=== PATIENT | female | born 1970 | race Caucasian/White ===

== ENCOUNTER 2020-01-09 07:24 | Outpatient (RCR) | payer OTHER, SELFPAY | END 2020-01-31 23:59 | disposition home or self-care (01) | LOC: SPT 07:24 | PROVIDERS: PCP Family Medicine; Visit Provider Family Medicine | DX: M47.816 Spondylosis without myelopathy or radiculopathy, lumbar region (principal) | CPT/HCPCS: 97110; 97150; 97162 ==

== ENCOUNTER 2020-02-01 06:00 | Outpatient (RCR) | payer OTHER, SELFPAY | END 2020-03-02 23:59 | disposition home or self-care (01) | LOC: SPT 06:00 | PROVIDERS: PCP Family Medicine; Visit Provider Family Medicine | DX: M47.816 Spondylosis without myelopathy or radiculopathy, lumbar region (principal) | CPT/HCPCS: 97110 ==

== ENCOUNTER 2020-02-22 06:00 | Outpatient (RCR) | payer OTHER, SELFPAY | END 2020-03-02 23:59 | disposition home or self-care (01) | LOC: SPT 06:00 | PROVIDERS: PCP Family Medicine; Referring Provider Family Medicine; Visit Provider Family Medicine | DX: N39.3 Stress incontinence (female) (male) (principal); M53.3 Sacrococcygeal disorders, not elsewhere classified | CPT/HCPCS: 97110; 97161; 97530 ==

== ENCOUNTER 2020-03-03 06:00 | Outpatient (RCR) | payer OTHER, SELFPAY | END 2020-04-02 23:59 | disposition home or self-care (01) | LOC: SPT 06:00 | PROVIDERS: PCP Family Medicine; Referring Provider Family Medicine; Visit Provider Family Medicine | DX: M53.3 Sacrococcygeal disorders, not elsewhere classified (principal); N39.3 Stress incontinence (female) (male) | CPT/HCPCS: 97110; 97112 ==

== ENCOUNTER 2020-04-03 06:00 | Outpatient (RCR) | payer OTHER, SELFPAY | END 2020-05-02 23:59 | disposition home or self-care (01) | LOC: SPT 06:00 | PROVIDERS: PCP Family Medicine; Referring Provider Family Medicine; Visit Provider Family Medicine | DX: M53.3 Sacrococcygeal disorders, not elsewhere classified (principal); N39.3 Stress incontinence (female) (male) | CPT/HCPCS: 97110 ==

== ENCOUNTER 2020-04-05 07:46 | Outpatient (CLI) | payer OTHER, SELFPAY ==
[2020-04-05 08:12] LABS: Basophils % 0.6 %; Eosinophils # 0.2 10^3/uL (0.0-0.8); Hematocrit 46.5 % (37.0-47.0); Hemoglobin 14.6 g/dL (11.5-15.3); Lymphocytes # 1.8 10^3/uL (0.8-4.8); Lymphocytes % 27.7 %; Mean Corpuscular HGB Conc 31.4 g/dL (30.0-36.0); Mean Corpuscular Hemoglobin 29.6 pg (28.0-34.0); Mean Corpuscular Volume 94.3 fL (81-99); Mean Platelet Volume 11.5 fL (7.4-10.4); Monocytes # 0.4 10^3/uL (0.2-0.9); Monocytes % 5.5 %; Neutrophils # 4.05 10^3/uL (1.8-7.7); Nucleated Red Blood Cells % 0 %; Platelet Count 210 10^3/cmm (130-400); Red Blood Count 4.93 10^6/uL (4.1-5.3); Red Cell Distribution Width 12.6 % (12.1-15.1); White Blood Count 6.4 10^3/uL (4.0-10.0)
[2020-04-05 08:25] LABS: Creatinine Urine, Random 175 mg/dL (28-217)
[2020-04-05 08:31] LABS: Albumin Level 4.3 g/dL (3.5-5.2); Anion Gap 12.3 (5-19); Blood Urea Nitrogen 8 mg/dL (6-20); Calcium 9.1 mg/dL (8.5-10.5); Carbon Dioxide 27 mmol/L (22-29); Chloride 105 mmol/L (98-107); Glomerular Filtration Rate 66.8 mL/min (90-130); Glucose 99 mg/dL (65-115); Phosphorus 3.8 mg/dL (2.5-4.5); Potassium 4.3 mmol/L (3.5-5.1); Sodium 140 mmol/L (136-145)
[2020-04-05 09:08] LABS: Calcium 9.8 mg/dL (8.5-10.5); Parathyroid Hormone 26.6 pg/mL (15-65)
== END 2020-04-05 07:47 | disposition home or self-care (01) ==
LOC: LAB 07:49
PROVIDERS: PCP Family Medicine; Visit Provider Internal Medicine Nephrology
DX: N18.3 Chronic kidney disease, stage 3 (moderate) (principal)
CPT/HCPCS: 36415; 80069; 82310; 82575; 83970; 85025

== ENCOUNTER 2020-05-03 06:00 | Outpatient (RCR) | payer OTHER, SELFPAY | END 2020-05-16 23:00 | disposition home or self-care (01) | LOC: SPT 06:00 | PROVIDERS: PCP Family Medicine; Referring Provider Family Medicine; Visit Provider Family Medicine | DX: M53.3 Sacrococcygeal disorders, not elsewhere classified (principal); N39.3 Stress incontinence (female) (male) | CPT/HCPCS: 97110 ==

== ENCOUNTER → 2020-09-14 09:46 | Outpatient (BNVA) | payer OTHER, SELFPAY | PROVIDERS: PCP Family Medicine; Visit Provider Nurse Practitioner Family | DX: Z20.822 Contact with and (suspected) exposure to COVID-19 (principal) | CPT/HCPCS: 87635 ==

== ENCOUNTER 2020-12-21 08:53 | Outpatient (CLI) | payer OTHER, SELFPAY ==
[2020-12-21 11:19] LABS: Basophils # 0.1 10^3/uL (0.0-0.1); Basophils % 0.8 %; Eosinophils # 0.2 10^3/uL (0.0-0.8); Eosinophils % 3.5 %; Hematocrit 45.5 % (37.0-47.0); Hemoglobin 14.6 g/dL (11.5-15.3); Lymphocytes # 1.8 10^3/uL (0.8-4.8); Lymphocytes % 26.9 %; Mean Corpuscular HGB Conc 32.1 g/dL (30.0-36.0); Mean Corpuscular Hemoglobin 29.6 pg (28.0-34.0); Mean Corpuscular Volume 92.3 fL (81-99); Mean Platelet Volume 11.4 fL (7.4-10.4); Monocytes # 0.4 10^3/uL (0.2-0.9); Monocytes % 6.4 %; Neutrophils # 4.09 10^3/uL (1.8-7.7); Neutrophils % 61.9 %; Nucleated Red Blood Cells % 0 %; Platelet Count 232 10^3/cmm (130-400); Red Blood Count 4.93 10^6/uL (4.1-5.3); Red Cell Distribution Width 12.6 % (12.1-15.1); White Blood Count 6.6 10^3/uL (4.0-10.0)
[2020-12-21 12:21] LABS: Alanine Aminotransferase 12 U/L (0-33); Albumin Level 4.1 g/dL (3.5-5.2); Alkaline Phosphatase 70 IU/L (35-105); Anion Gap 10.9 (5-19); Aspartate Amino Transferase 13 U/L (0-32); Blood Urea Nitrogen 8 mg/dL (6-20); Calcium 8.6 mg/dL (8.5-10.5); Carbon Dioxide 28 mmol/L (22-29); Chloride 105 mmol/L (98-107); Globulin 2.7 g/dL (1.3-4.6); Glomerular Filtration Rate 76.2 mL/min (90-130); Glucose 81 mg/dL (65-115); Osmolality Calculated 287 mOsm/kg (285-295); Potassium 3.9 mmol/L (3.5-5.1); Sodium 140 mmol/L (136-145); Thyroid Stimulating Hormone 3.05 uIU/mL (0.27-4.20); Total Bilirubin 0.5 mg/dL (0.15-1.2); Total Protein 6.8 g/dL (6.6-8.7)
[2020-12-21 13:18] LABS: 25 Hydroxy Vitamin D 24 ng/mL (30-100)
--- NOTE | 2020-12-22 17:18 | ONC CON_ITS ---
Dr. Stout New Patient Note Patient: Nikole Vazquez Unit #: [id number]: 1970 Dicatated By: Masood Stout M.D.Date of Visit: December 21, 2020 Onc MED New Patient/Consult Referring Physician: Dr. Je Arcos D.O. Chief Complaint: Breast cancer. History of Present Illness: This is a 50-year-old woman with grade 2 infiltrating lobular carcinoma of the left breast, stage IA (T1c, pN1a, M0), ER/NE positive and HER-2/rosa negative. She had a normal screening mammogram in August. She had then presented with a palpable lump in the subareolar area of the left breast. Ultrasound directed biopsy of the mass on 11/20/2020 showed grade 2 invasive lobular carcinoma. The breast prognostic profile showed ER positive at 96% and NE positive at 98%. It was negative for overexpression of HER-2/rosa, 1+ by IHC. She then underwent left breast lumpectomy with axillary sentinel lymph node biopsy on 12/11/2020. Pathology showed grade 2 invasive lobular carcinoma measuring 1.4 x 1.2 x 1.0 cm. There was invasive lobular carcinoma present at the medial resection margin and within 1 mm of the deep, anterior, and lateral margins. There was involvement in 1 of 3 sentinel lymph nodes with the metastasis measuring 2.1 mm. She underwent reexcision lumpectomy on 12/11/2020. Pathology on the reexcision showed no evidence of invasive carcinoma. Her Oncotype DX was low risk with recurrence score 15 corresponding to a risk for distant recurrence at 9 years of 14% with adjuvant endocrine therapy. There was no predicted benefit with adjuvant chemotherapy. She is seen now for further management of the breast cancer. She still has some tenderness in the breast and some pain in the axillary area following the recent surgery. She says she gets tired a lot, which she is working. She does have somewhat restricted activity following the surgery. Her ECOG score is 1. Her appetite has been okay. She had been able to lose about 30 pounds by dieting, but since she regained 25 pounds. Her weight recently has dropped 5 pounds. She has not had fever. She is having hot flashes and sweating all the time. She had started Depo-Provera for endometriosis about 20 years ago. She had continued it until approximately 6 months ago, when her treatment was changed to an oral contraceptive, which has now been discontinued. She had a menstrual period in November and again about 2 weeks ago. She indicates that she is now starting another period. She is 1/para 1. She had her at age 17. Her other main complaint is that she has had pain in her tailbone area for the past year or so. She was found on MRI to have a 6 mm lesion in the left sacral ala. It is being managed expectantly. She also reports having pain in her right leg, typically when she first wakes up in the morning. She has chronic migraine, that has been well controlled on medication. She has had numbness in the radial aspect of her left forearm radiating into the ulnar aspect of the left hand. She has no other joint or bone pain and she has no other focal neurologic symptoms. Past Medical History: Her medical history includes anxiety, chronic kidney disease, chronic migraine, depression, endometriosis, and osteopenia. She has a history of nephrolithiasis. Past Surgical History: She underwent ultrasound directed biopsy of left breast mass 11/20/2020, left breast lumpectomy and axillary sentinel lymph node biopsy 12/04/2020, and left breast reexcision lumpectomy on . Her other surgical/procedural history includes appendectomy, cervical cone biopsy, colonoscopy, revision of appendectomy scar, and cystoscopy with left ureteral stent placement and extracorporeal shockwave lithotripsy in 2009. Medications: Aimovig 1 (70 mg/mL) Subcutaneous q 30 days, Ubrelvy 1 (50 mg) Tablet Oral PRN Allergies: Adhesive Tape, diphenhydrAMINE HCl, Gabapentin, Hymenoptra Tests, and Sulfa Antibiotics. Social History: Ms. Vazquez is . 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 She is a non-smoker. She has only rare alcohol use. Family History: Father still living at age 77. He has been treated for melanoma. Mother of rectal cancer at age 66. A maternal uncle is undergoing treatment for squamous cell head/neck cancer. A maternal aunt has polycythemia rubra vera. Her paternal grandfather had diabetes. Review Of Symptoms: Constitutional - She generally feels fatigued. 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 Prior to her recent surgeries she was working full-time and had normal acitvity without restrictions. Her appetite is good and her weight is stable. No fevers. She has been having persistent hot flashes with sweating both day and night. ECOG score is 1, Eyes - She has had some decline in vision, ENMT - No hearing loss or tinnitus. No sinus congestion/drainage. No mouth sores. No sore throat or difficulty swallowing, Hematologic/Lymphatic - She bruises easily, Respiratory - No shortness of breath. No cough. No pleuritic pain or hemoptysis, Cardiovascular - No angina pain. No palpitations. During the past 5 years she has had very occasional episodes of unexplained lightheadedness/syncope, Gastrointestinal - No nausea or vomiting. She has occasional heartburn. No diarrhea or constipation. No blood in the stool or black stools, Genitourinary (F) - No dysuria or hematuria. She has urinary frequency. No urgency or incontinence. She had been started on Depo-Provera about 20 years ago for endometriosis. Approximately 6 months ago her treatment was changed to an oral contraceptive. It was stopped with the diagnosis of her breast cancer. She reports having had a menstrual period in November and one 2 weeks ago. She is just starting another period now, Musculoskeletal - She has persistent pain to her tailbone. She states that a recent MRI showed her a small lesion to her tailbone. She also reports occasional pain in her lower leg, which she notices mostly in the mornings, Integumentary - No skin eruption, Neurologic - She has chronic migraines that are well controlled with her monthly Aimovig injection. No current dizziness. She has a numbness sensation in left arm and hand. No other focal neurologic symptoms, Psychiatric - She has some anxiety and depression. No insomnia. Vital Signs: Performed on December 21, 2020 09:18: 4, 31.83 (HIGH), 1.99 sq.m, 66 in, 99 %, 71 /min, 19 /min, 120/79 mm(hg), 98.1 F (LOW), and 197.2 lbs (HIGH). Physical Examination: Constitutional - She appears to be in good general health, Eyes - Sclerae nonicteric. Conjunctivae clear, ENMT - No lesions noted in the oral cavity, Neck - No mass or thyromegaly, Hematologic/Lymphatic - No cervical or clavicular adenopathy, Respiratory - Lungs are clear with good air movement bilaterally, Cardiovascular - Heart rhythm is regular. There is no murmur, gallop, or rub noted, Breasts - There is tenderness in the left breast following the recent biopsy. The incision appears well-healed. There are no breast masses noted. There is no axillary adenopathy noted, Abdomen - Soft and non-tender. Liver and spleen are not enlarged. There is no abdominal mass or ascites noted and there is no inguinal adenopathy, Back/Spine - No spine or CVA tenderness noted, Extremities - No edema. Pedal pulses are palpable bilaterally, Integumentary - No rashes. No suspicious skin lesions noted, Neurologic - No focal neurologic deficits noted. Problem List: 1. Grade 2 invasive lobular carcinoma involving the subareolar area of the left breast, stage IA (T1c, pN1a, M0), ER/NE positive and HER-2 negative. Her Oncotype DX was low risk with recurrence score 15. 2. She has been on long-term endocrine therapy for endometriosis, now discontinued. She appears to be perimenopausal. 3. Chronic kidney disease. 4. Chronic migraine. 5. Osteopenia. 6. History of nephrolithiasis. 7. Anxiety and depression. Problems Addressed with this Encounter and Plan: 1. Patient with grade 2 invasive lobular carcinoma involving the subareolar area of the left breast, stage IA (T1c, pN1a, M0), ER/NE positive and HER-2 negative. Her Oncotype DX was low risk with recurrence score 15. She has been on long-term endocrine therapy for endometriosis, now discontinued. She appears to be perimenopausal. Her treatment thus far has included ultrasound guided biopsy of the left breast mass on 11/20/2020 followed by left breast lumpectomy and axillary sentinel lymph node biopsy on 12/04/2010 and by reexcision lumpectomy on 12/11/2020. The pathology results were reviewed with the patient. By the new NCCN classification, her disease is stage IA and by Oncotype DX it is low risk with estimated risk of distant recurrence at 9 years of 14%. There was no predicted benefit with adjuvant chemotherapy. As such, she is advised now to proceed with radiation, and I will arrange for consultation with the radiation oncologist. She will then begin adjuvant hormonal therapy when the radiation is completed. In the setting of axillary lymph node involvement, I am going to recommend that she have treatment with aromatase inhibitor, which will most likely be anastrozole. As she is perimenopausal, she also will require ovarian suppression with a GHRH analog. I reviewed anticipated side effects with anastrozole which may include osteoporosis and joint pain, among others. She is going to bring in results of her most recent DEXA scan and she will have treatment for the osteopenia as indicated. In the meantime, I also will check her baseline laboratory studies today to include CBC, comprehensive metabolic profile, TSH level, and 25-hydroxy vitamin D level. I will plan to see her again when the radiation is completed. 2. She has been having pain in the coccygeal area for the past year or so. She was found to have have an abnormal lesion in the left sacral ala by MRI. I will obtained that study for review. However, as a precaution, I also am going to schedule her for a bone scan. She will have further evaluation as indicated. Signed By: Masood Stout M.D. <<Signature on File>>
== END 2020-12-21 08:54 | disposition home or self-care (01) ==
PROVIDERS: PCP Family Medicine; Visit Provider Internal Medicine Medical Oncology
DX: C50.012 Malignant neoplasm of nipple and areola, left female breast (principal); Z17.0 Estrogen receptor positive status [ER+]; N80.9 Endometriosis, unspecified; N18.9 Chronic kidney disease, unspecified; G43.919 Migraine, unspecified, intractable, without status migrainosus; M85.80 Other specified disorders of bone density and structure, unspecified site; F41.9 Anxiety disorder, unspecified; F32.9 Major depressive disorder, single episode, unspecified; Z87.442 Personal history of urinary calculi; Z79.811 Long term (current) use of aromatase inhibitors
CPT/HCPCS: 80053; 82306; 84443; 85025; 99205

== ENCOUNTER 2020-12-25 06:38 | Outpatient (CLI) | payer OTHER, SELFPAY ==
--- NOTE | 2020-12-25 13:33 | N.ONRAD NP_ITS ---
Radiation Oncology New Patient Visit Patient: Nikole Vazquez MR#: [id number] : 1970> Age: 50> Sex: Female> Dictated by: Dr. Ramos Siddiqui Date of Service: 12/25/2020 Referring Physician(s) : Dr. Je Arcos Diagnosis: C50.112 - malignant neoplasm of central portion of left female breast, Diagnosed 12/21/2020 (active), stage ia, t1c, pn1a, m0, g2, her2 neg, er pos, pr. Radiotherapy to date: Summary > No prior radiation therapy. Chief Complaint / History of Present Illness: Path St IIA, prognostic St IA (T1 N1 M0) ER/MD+ Her 2 Mandeep - Gr 2 invasive lobular carcinoma of left breast s/p surgery on 12/04 with negative re excision 12/11/2020. 1 of 3 SLN positive with 2.1 mm involvement. Favorable oncotype DX score of 15. Only antiestrogen rx with AI planned. Doing well pot op. she does note a year long history of unexplained fatigue. Evaluation with screening lab with Dr. Stout is in progress for this. Current Medications: Aimovig, effexor XR, ubrelvy. Allergies: Hymenoptra Tests, diphenhydrAMINE HCl, Sulfa Antibiotics, Adhesive Tape and Gabapentin. Medical History: - Anxiety, - chronic kidney disease (stage III) , - chronic migraine, - depression, - endometriosis, - history of nephrolithiasis, - osteopenia. No history of collagen vascular disease. No previous radiation therapy. Surgical History: Appendectomy, cervical cone biopsy, colonoscopy, cystoscopy with left ureteral stent placement and extracorporeal shockwave lithotripsy in 2009, left breast lumpectomy and axillary sentinel lymph node biopsy on 12/04/2020, left breast reexcision lumpectomy on 12/11/2020, revision of appendectomy scar and ultrasound directed biopsy of left breast mass on 11/16/2020. Family History: Father is alive having experienced Melanoma. Mother is at age 66 having experienced rectal cancer. Paternal Grandmother has experienced type II diabetes. Father still living at age 77. He has been treated for melanoma. Mother of rectal cancer at age 66. A maternal uncle is undergoing treatment for squamous cell head/neck cancer. A maternal aunt has polycythemia rubra vera. Her paternal grandfather had diabetes. Social History: Last screened on 12/25/2020 - Never smoked. Last screened on 12/25/2020 - Never drank. . 33 yr old daughter and adopted 14 yr old son at home. 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 Current Complaints / Review of Systems: . Vital Signs: Performed on 12/25/2020 10:39 AM BMI - 31.926 kg/m2 (high), Height - 66.00 in, Weight - 197.8 lbs, Temperature - 98.9 f, Pulse - 77, Respiration - 18, O2 Sat - 98 %, Pain - 4 and BP - 118/ 80 mm(hg). Physical Exam: Pleasant in NAD. No palpable adenopathy. Arms have full range of motion.. No arm edema. Left axillary and left breast incisions Performance Status: 1 - No physically strenuous activity, but ambulatory and able to carry out light or sedentary work (e.g. office work, light house work). (ECOG) Pathology: Primary, c50.112 - malignant neoplasm of central portion of left female breast, Diagnosed 12/21/2020 (active) stage ia, t1c, pn1a, m0, g2, her2 neg, er pos, pr. Lab: Test performed on 12/21/2020 10:44 AM MPV - 11.4 fl (high), eGFR - 76.2 ml/min (low) and Vitamin D (25-Hydroxy), Total - 24 ng/ml (low). Imaging: See HPI Impression: Path St II prog St I invasive lobular carcinoma of left breast with clear margins following re-excision. Clearly a good candidate for breast preservation. Recommend 4 week course of a hypofractionated breast treatment followed by boost. Discussed in detail with patient. She will return here next week and see Dr. Avila and plan for simulation at that time Plan: Signed by: 12/25/2020 1:32:16 PM <<Signature on File>> Time spent with patient: CPT Code: CPT Code:
== END 2020-12-25 06:39 | disposition home or self-care (01) ==
LOC: ONCMED 06:39
PROVIDERS: PCP Family Medicine; Visit Provider Radiology Radiation Oncology
DX: C50.112 Malignant neoplasm of central portion of left female breast (principal); Z17.0 Estrogen receptor positive status [ER+]; F41.9 Anxiety disorder, unspecified; N18.30 Chronic kidney disease, stage 3 unspecified; G43.919 Migraine, unspecified, intractable, without status migrainosus; F32.9 Major depressive disorder, single episode, unspecified; N80.9 Endometriosis, unspecified; M85.80 Other specified disorders of bone density and structure, unspecified site; Z87.442 Personal history of urinary calculi; Z79.899 Other long term (current) drug therapy
CPT/HCPCS: 99205

== ENCOUNTER 2021-01-30 05:48 | Outpatient (RCR) | payer OTHER, SELFPAY ==
--- NOTE | 2021-01-02 | CT_ITS ---
Radiation Therapy Planning CT images; total exam DLP: 547.31 mGy-cm MTDD
--- NOTE | 2021-01-08 08:25 | NM_ITS ---
WS: [id number] NUCLEAR MEDICINE WHOLE BODY BONE SCAN HISTORY: BREAST CANCER/TAILBONE PAIN COMPARISON: MRI sacrum 09/27/2020 TECHNIQUE: The patient was injected with 26.9 mCi of Technetium 99m HDP and serial whole-body scintig debra have been performed with anterior and posterior images. Additional full field imaging over the p willie and skull. No focal areas of moderate or intense uptake within the bony skeleton to suggest metastatic disease. There is some very mild symmetric uptake in the SI joints. MRI sacrum from outside examination is rev iewed. There is a very subtle area measuring 6 mm in the LEFT sacrum which is nonspecific. No contras t examination was performed to evaluate for enhancement. This area is not positive on the bone scan i maging. There is normal soft tissue uptake and normal renal uptake. NM/NM bone scan whole body* [id number] IMPRESSION: 1. No evidence for metastatic disease to the bony skeleton. 6 mm area of incre ased T2 signal seen on a prior MRI sacrum is not evident. 2. Recommend 3 month follow-up MRI sacrum with and without contrast for furthe r evaluation.
[2021-01-14] MEDS: lidocaine 1% INJ 20 mL SUBCUT (12:12)
[2021-01-14] MEDS: goserelin acetate 3.6 mg Implant SUBCUT (12:12)
--- NOTE | 2021-01-15 08:56 | ONCRAD TMN_ITS ---
Radiation Oncology Treatment Management Note Patient Name: Nikole Vazquez Date of : 1970 Date of Service: 01/15/2021 Attending Physician: Abe Avila M.D. Nikole Vazquez is a 50 year-old white female diagnosed with a pathological stage IB (T1cN1a) ductal carcinoma of the upper-outer quadrant of the left breast. Immunohistochemical stains were positive for estrogen receptor (98%) and progesterone receptor (100%), but negative for HER-2/rosa (1+). The tumor demonstrated an Oncotype DX Breast Recurrence Score of 14. She has received 4 Gy of a prescribed 50 Gy delivered with a 3D conformal radiotherapy plan utilizing opposed tangential portal peraza matched to supraclavicular fossa and PAB peraza. Upon review of systems, she denied any breast complaints to radiotherapy. On physical examination, the patient weighed 195 lbs. Her temperature was 98.4 ???F with a blood pressure of 116/85 mmHg. Her pulse was 77 bpm and her respiratory rate was 18. There was no erythema within the treatment peraza of the left breast. Continue breast and regional lymph node irradiation as prescribed. Signed by: Dr. Abe Avila 01/15/2021 8:55:35 AM
--- NOTE | 2021-01-21 09:05 | ONCRAD TMN_ITS ---
Radiation Oncology Treatment Management Note Patient Name: Nikole Vazquez Date of : 1970 Date of Service: 01/21/2021 Attending Physician: Abe Avila M.D. Nikole Vazquez is a 50 year-old white female diagnosed with a pathological stage IB (T1cN1a) ductal carcinoma of the upper-outer quadrant of the left breast. Immunohistochemical stains were positive for estrogen receptor (98%) and progesterone receptor (100%), but negative for HER-2/rosa (1+). The tumor demonstrated an Oncotype DX Breast Recurrence Score of 14. She has received 12 Gy of a prescribed 50 Gy delivered with a 3D conformal radiotherapy plan utilizing opposed tangential portal peraza matched to supraclavicular fossa and PAB peraza. Upon review of systems, she reported occasional sharp breast pain. On physical examination, the patient weighed 193 lbs. Her temperature was 98.9 ???F with a blood pressure of 127/85 mmHg. Her pulse was 78 bpm and her respiratory rate was 18. There was no erythema within the treatment peraza of the left breast. Continue breast and regional lymph node irradiation as planned. Signed by: Dr. Abe Avila 01/21/2021 9:04:09 AM
--- NOTE | 2021-01-28 09:17 | ONCRAD TMN_ITS ---
Radiation Oncology Treatment Management Note Patient Name: Nikole Vazquez Date of : 1970 Date of Service: 01/28/2021 Attending Physician: Abe Avila M.D. Nikole Vazquez is a 50 year-old white female diagnosed with a pathological stage IB (T1cN1a) grade II lobular carcinoma of the upper-outer quadrant of the left breast. Immunohistochemical stains were positive for estrogen receptor (98%) and progesterone receptor (100%), but negative for HER-2/rosa (1+). The tumor demonstrated an Oncotype DX Breast Recurrence Score of 14. She has received 12 Gy of a prescribed 50 Gy delivered with a 3D conformal radiotherapy plan utilizing opposed tangential portal peraza matched to supraclavicular fossa and PAB peraza. Upon review of systems, she reported occasional sharp breast pain. On physical examination, the patient weighed 193 lbs. Her temperature was 98.9 ???F with a blood pressure of 113/79 mmHg. Her pulse was 70 bpm and her respiratory rate was 18. There was no erythema within the treatment peraza of the left breast. Continue breast and regional lymph node irradiation as prescribed. Signed by: Dr. Abe Avila 01/28/2021 9:15:16 AM
== END 2021-01-30 23:59 | disposition home or self-care (01) ==
LOC: ONCMED 05:48
PROVIDERS: PCP Family Medicine; Visit Provider Radiology Radiation Oncology
DX: Z51.0 Encounter for antineoplastic radiation therapy (principal); C50.112 Malignant neoplasm of central portion of left female breast; Z17.0 Estrogen receptor positive status [ER+]; Z79.899 Other long term (current) drug therapy
CPT/HCPCS: 77290; 77295; 77300; 77334; 77336; 77387; 77412; 78306; 96372; 96402; A9561; J9202; Q9967

== ENCOUNTER 2021-01-31 06:00 | Outpatient (RCR) | payer OTHER, SELFPAY | END 2021-02-19 23:00 | disposition home or self-care (01) | LOC: SPT 06:00 | PROVIDERS: PCP Family Medicine; Referring Provider Radiology Radiation Oncology; Visit Provider Radiology Radiation Oncology | DX: C50.919 Malignant neoplasm of unspecified site of unspecified female breast (principal) | CPT/HCPCS: 97140; 97161 ==

== ENCOUNTER 2021-02-18 05:55 | Outpatient (RCR) | payer OTHER, SELFPAY ==
--- NOTE | 2021-02-05 09:18 | ONCRAD TMN_ITS ---
Radiation Oncology Treatment Management Note Patient Name: Nikole Vazquez Date of : 1970 Date of Service: 02/05/2021 Attending Physician: Abe Avila M.D. Nikole Vazquez is a 50 year-old white female diagnosed with a pathological stage IB (T1cN1a) grade II lobular carcinoma of the upper-outer quadrant of the left breast. Immunohistochemical stains were positive for estrogen receptor (98%) and progesterone receptor (100%), but negative for HER-2/rosa (1+). The tumor demonstrated an Oncotype DX Breast Recurrence Score of 14. She has received 32 Gy of a prescribed 50 Gy delivered with a 3D conformal radiotherapy plan utilizing opposed tangential portal peraza matched to supraclavicular fossa and PAB peraza. Upon review of systems, she reported occasional breast pain. On physical examination, the patient weighed 192 lbs. Her temperature was 98.7 ???F with a blood pressure of 114/84 mmHg. Her pulse was 76 bpm and her respiratory rate was 18. There was no erythema within the treatment peraza of the left breast. Continue breast and regional lymph node irradiation as planned. Signed by: Dr. Abe Avila 02/05/2021 9:16:17 AM
--- NOTE | 2021-02-11 09:18 | ONCRAD TMN_ITS ---
Radiation Oncology Treatment Management Note Patient Name: Nikole Vazquez Date of : 1970 Date of Service: 02/11/2021 Attending Physician: Abe Avila M.D. Nikole Vazquez is a 50 year-old white female diagnosed with a pathological stage IB (T1cN1a) grade II lobular carcinoma of the upper-outer quadrant of the left breast. Immunohistochemical stains were positive for estrogen receptor (98%) and progesterone receptor (100%), but negative for HER-2/rosa (1+). The tumor demonstrated an Oncotype DX Breast Recurrence Score of 14. She has received 40 Gy of a prescribed 50 Gy delivered with a 3D conformal radiotherapy plan utilizing opposed tangential portal peraza matched to supraclavicular fossa and PAB peraza. Upon review of systems, she reported breast itching. On physical examination, the patient weighed 190 lbs. Her temperature was 98.7 ???F with a blood pressure of 117/85 mmHg. Her pulse was 77 bpm and her respiratory rate was 18. There was a grade II dermatitis within the treatment peraza of the left breast. Continue breast and regional lymph node irradiation as prescribed. Apply hydrocortisone 1% for itching. Signed by: Dr. Abe Avila 02/11/2021 9:17:11 AM
[2021-02-13] MEDS: lidocaine 1% INJ 20 mL INJECTION (09:55)
[2021-02-13] MEDS: goserelin acetate 3.6 mg Implant SUBCUT (10:10)
--- NOTE | 2021-02-14 11:00 | MR_ITS ---
WS: [id number] MRI LUMBAR SPINE WITH CONTRAST TECHNIQUE: Sagittal T1, T2 and STIR imaging. Axial T1 and T2 imaging. Post gadolinium imaging was obt ained. CLINICAL INFORMATION: BREAST CA;INCREASED TAILBONE PAIN; COMPARISON: None. FINDINGS: Mild lumbar curve. No acute compression. No high-grade central canal stenosis. L1-L2: Normal. L2-L3: Normal. L3-L4: No significant disc bulging. Moderate facet arthropathy. Spinal canal and foramen are patent. L4-L5: No significant disc bulging. Spinal canal and foramen are patent. Mild facet arthropathy. L5-S1: Mild annular bulging with osteophytic ridging. Spinal canal and foramen are patent. Mild facet arthropathy. No evidence of metastatic disease in the lumbar spine. Visualized sacral bony structures are normal i n appearance. Visualized pelvic bony structures: Normal. Paravertebral soft tissues: Normal. MR/MR lumbar spine wo/w con [id number] IMPRESSION: 1. No evidence of metastatic disease in the lumbar spine and visualized sacrum . 2. No significant spinal canal or foraminal narrowing. 3. No acute compression fractures. 4. Mild to moderate facet arthropathy L3-L4 and L4-L5.
[2021-02-14] MEDS: gadobenate dimeglumine 20 mL vial IV (12:48)
--- NOTE | 2021-02-18 11:02 | N.ONRD TS_ITS ---
Radiation Oncology Treatment Summary Patient: Nikole Vazquez MR#: [id number] : 1970> Age: 50> Sex: Female Dictated by: Dr. Yefri Yañez Date of Service: 02/18/2021 Referring Physician(s) : Dr. Je Arcos Diagnosis: C50.112 - Malignant neoplasm of central portion of left female breast, Diagnosed 11/16/2020 (Active) Stage IA, T1c, pN1a, M0, G2, HER2 Neg, ER Pos, CO Radiotherapy to Date: Course: Breast 2020, Treatment Site: SCV_L, Ref. ID: [email or web address], Energy: 15X, Dose/Fx (cGy): 200, #Fx: 25 / 25, Dose Correction (cGy): 0, Total Dose (cGy): 5,000, Start Date: 01/14/2021, End Date: 02/18/2021, Elapsed Days: 35 Treatment Site: Breast Ca, Ref. ID: [email or web address], Energy: 15X/6X, Dose/Fx (cGy): 200, #Fx: 25 / 25, Dose Correction (cGy): 0, Total Dose (cGy): 5,000, Start Date: 01/14/2021, End Date: 02/18/2021, Elapsed Days: 35 Clinical Summary: The patient tolerated RT well. On the last day of treatment she had moderate erythema and hyperpigmentation throughout the breast except for the periareolar area. In this area she had developed hypopigmentation and an increase in skin reaction. She did not have any area of moist desquamation. According to Dr. Avila's instructions, she has started applying Vaseline to the areolar area and has continued applying moisturizer and hydrocortisone 1% to the remainder of the breast. Symptoms are minimal. She was encouraged to continue her skin regimen. She asked if the pigmentation will return to the areola and nipple. She was counseled that sometimes the hypopigmentation is permanent. Also on the last day of treatment, the patient complained of 2 brief lightheaded episodes over the weekend. Her neurologic exam was normal. I asked her to call in if these episodes continue. She will see Dr. Stout for the initiation of hormonal therapy. She states that she has already initiated Zoladex. Plan: End of treatment today. Continue on the above medication until the skin reaction resolves. Follow up in one month. Signed by: Dr. Yefri Yañez>02/18/2021 11:00:22 AM <<Signature on File>>
== END 2021-03-02 23:59 | disposition home or self-care (01) ==
LOC: ONCMED 05:55
PROVIDERS: Absent Provider Radiology Radiation Oncology; PCP Family Medicine; Visit Provider Specialist
DX: Z51.0 Encounter for antineoplastic radiation therapy (principal); C50.112 Malignant neoplasm of central portion of left female breast; Z17.0 Estrogen receptor positive status [ER+]; Z79.899 Other long term (current) drug therapy
CPT/HCPCS: 72158; 77014; 77336; 77387; 77412; 77427; 96372; 96402; A9577; J9202

== ENCOUNTER 2021-03-22 05:31 | Outpatient (RCR) | payer OTHER, SELFPAY ==
--- NOTE | 2021-03-08 08:16 | ONC FU_ITS ---
Dr. Stout Patient Follow-Up Note Patient: Nikole Vazquez Unit #: [id number]: 1970 Dicatated By: Masood Stout M.D.Date of Visit:Mar 04, 2021 Onc Med Follow-up/Prog Note Chief Complaint: Breast cancer. History of Present Illness: This is a 50-year-old woman with grade 2 invasive lobular carcinoma of the left breast, stage IA (T1c, pN1a, M0), ER/NV positive and HER-2/rosa negative. She had a normal screening mammogram in August 2020. She had then presented with a palpable lump in the subareolar area of the left breast. Ultrasound directed biopsy of the mass on 11/20/2020 showed grade 2 invasive lobular carcinoma. The breast prognostic profile showed ER positive at 96% and NV positive at 98%. It was negative for overexpression of HER-2/rosa, 1+ by IHC. She then underwent left breast lumpectomy with axillary sentinel lymph node biopsy on 12/11/2020. Pathology showed grade 2 invasive lobular carcinoma measuring 1.4 x 1.2 x 1.0 cm. There was invasive lobular carcinoma present at the medial resection margin and within 1 mm of the deep, anterior, and lateral margins. There was involvement in 1 of 3 sentinel lymph nodes with the metastasis measuring 2.1 mm. She underwent reexcision lumpectomy on 12/11/2020. Pathology on the reexcision showed no evidence of invasive carcinoma. Her Oncotype DX was low risk with recurrence score 15 corresponding to a risk for distant recurrence at 9 years of 14% with adjuvant endocrine therapy. There was no predicted benefit with adjuvant chemotherapy. I had seen her initially on 12/21/2020. In the setting of a low risk Oncotype DX score, adjuvant chemotherapy was not recommended. However, with axillary lymph node involvement, I felt that she should have adjuvant hormonal therapy with aromatase inhibitor. She was premenopausal at diagnosis and she was thus recommended to initially begin ovarian suppression with goserelin. She was referred to Dr. Avila for radiation. She completed treatment to the left breast and left supraclavicular region on 02/18/2021 to a total dose of 5000 cGy administered in 25 fractions. Her medical history is significant and that she had been on long-term endocrine therapy for endometriosis. Her other medical illnesses include chronic kidney disease, osteopenia, and chronic migraine. She has a history of nephrolithiasis and she also has a history of anxiety/depression. She is a non-smoker. She is seen for a follow-up visit. She finished her radiation 2 weeks ago, and she says she is feeling exhausted. She still has normal activity, though. ECOG score is 0. Her appetite has been okay, but she has been losing weight. She does not have fever, night sweats, or hot flashes. She has had some episodes of sweating during the daytime. She has not complained of shortness of breath or cough, but she has occasional episodes of choking. She had several episodes of chest pain during the night last night. She has been having a lot of heartburn. She also has been having constipation, and she recently started MiraLAX. Bladder function has been okay. She has had no menstrual period since October. She continues to have constant pain in the tailbone area. Her back, though, is not hurting, and she is not having any significant joint pain. She has headache off and on. She has had occasional episodes of vertigo. She has no numbness/paresthesia or other focal neurologic symptoms. Medications: Aimovig 1 (70 mg/mL) Subcutaneous q 30 days, Effexor XR 1 (75 mg) Capsule SR 24 HR Oral daily, traMADol HCl 1 Tablet (of 50 mg) Oral q 6 hours, Ubrelvy 1 (50 mg) Tablet Oral PRN Allergies: Adhesive Tape, diphenhydrAMINE HCl, Gabapentin, Hymenoptra Tests, and Sulfa Antibiotics. Vital Signs: Performed on Mar 04, 2021 12:59 Height - 66.00 in Weight - 187.2 lbs (LOW) BSA - 1.94 sq.m BMI - 30.22 (HIGH) Temperature - 98 F (LOW) Pulse - 103 /min (HIGH) Respiration - 18 /min BP - 142/83 mm(hg) (HIGH) O2 Sat - 98 % Pain - 4 Fatigue - 10 Physical Examination: Constitutional - She looks good generally, Eyes - Sclerae nonicteric. Conjunctivae clear, ENMT - No lesions noted in the oral cavity, Hematologic/Lymphatic - No cervical, clavicular, or axillary adenopathy, Respiratory - Lungs are clear with good air movement bilaterally, Cardiovascular - Heart rhythm is regular. There is no murmur, gallop, or rub noted, Breasts - The left breast shows residual skin reaction from the radiation including discoloration and desquamation, Abdomen - Soft. Liver and spleen are not enlarged. There is no abdominal mass or ascites noted and there is no inguinal adenopathy, Extremities - No edema, Integumentary - No rashes. No suspicious skin lesions noted, Neurologic - No focal neurologic deficits noted. Lab/Imaging: Test performed on December 21, 2020 10:44 Sodium 140 mmol/L TSH 3.05 uIU/mL Vitamin D (25-Hydroxy), Total 24 ng/mL Potassium 3.9 mmol/L Chloride 105 mmol/L CO2 28 mmol/L Anion Gap 10.9 BUN 8 mg/dL Creatinine 0.8 mg/dL Cr Clearance (Est) 120.1200 mL/min eGFR 76.2 mL/min Glucose 81 mg/dL Osmolality - Calculated 287 mOsm/kg Calcium 8.6 mg/dL Protein, Total 6.8 g/dL Albumin 4.1 g/dL Globulin 2.7 g/dL Bilirubin, Total 0.5 mg/dL ALT (SGPT) 12 U/L AST (SGOT) 13 U/L Alkaline Phosphatase 70 IU/L WBC 6.6 10 3/uL RBC 4.93 10 6/uL HGB 14.6 g/dL HCT 45.5 % MCV 92.3 fL MCH 29.6 pg MCHC 32.1 g/dL RDW 12.6 % Platelet Count 232 10 3/cmm MPV 11.4 fL Neutrophils 4.09 10 3/uL Lymphocytes 1.8 10 3/uL Monocytes 0.4 10 3/uL Eosinophils 0.2 10 3/uL Basophils 0.1 10 3/uL Neutrophil % 61.9 % Lymphocyte % 26.9 % Monocyte % 6.4 % Eosinophil % 3.5 % Basophils % 0.8 % NRBC % 0 % Problem List: 1. Grade 2 invasive lobular carcinoma involving the subareolar area of the left breast, stage IA (T1c, pN1a, M0), ER/NV positive and HER-2 negative. Her Oncotype DX was low risk with recurrence score 15. 2. She has been on long-term endocrine therapy for endometriosis, now discontinued. She appears to be perimenopausal. 3. Chronic kidney disease. 4. Chronic migraine. 5. Osteopenia. 6. History of nephrolithiasis. 7. Anxiety and depression. Problems Addressed with this Encounter and Plan: 1. Patient with grade 2 invasive lobular carcinoma involving the subareolar area of the left breast, stage IA (T1c, pN1a, M0), ER/NV positive and HER-2 negative. Her Oncotype DX was low risk with recurrence score 15. She has been on long-term endocrine therapy for endometriosis, now discontinued. She appears to be perimenopausal. Her treatment thus far has included ultrasound guided biopsy of the left breast mass on 11/20/2020 followed by left breast lumpectomy and axillary sentinel lymph node biopsy on 12/04/2010 and by reexcision lumpectomy on 12/11/2020. The pathology results were reviewed with the patient. By the new NCCN classification, her disease is stage IA and by Oncotype DX it is low risk with estimated risk of distant recurrence at 9 years of 14%. There was no predicted benefit with adjuvant chemotherapy. As such, the chemotherapy was not recommended, and she was referred to Dr. Avila for radiation. In the setting of axillary lymph node involvement, I felt that she should have adjuvant hormonal therapy with an aromatase inhibitor. She was premenopausal at diagnosis, she began ovarian suppression with goserelin. She completed radiation to the left breast and supraclavicular area on 02/18/2021 to a total dose of 5,000 cGy, administered in 25 fractions. She has still been feeling exhausted following completion of the radiation. As such, I am going to defer starting her aromatase inhibitor. In the meantime, she will continue ovarian suppression with groserelin. 2. She has been having pain in the coccygeal area for the past year or so. She was found to have have an abnormal lesion in the left sacral ala by MRI. Her recent bone scan and lumbar spine MRI showed no evidence of metastatic disease. MRI did show a very subtle lesion in the left sacrum measuring 6 mm. It was felt to be nonspecific, but it will need follow-up. 3. She has osteopenia, and she may require treatment for bone health. I will check results of her most recent bone density study and it will be updated as indicated. Signed By: Masood Stout M.D. <<Signature on File>>
[2021-03-13] MEDS: lidocaine 1% INJ 20 mL INJECTION (09:30)
[2021-03-13] MEDS: goserelin acetate 3.6 mg Implant SUBCUT (09:45)
--- NOTE | 2021-03-14 09:58 | MR_ITS ---
WS: [id number] INDICATION: Coccyx pain TECHNIQUE: MRI of the pelvis without and with gadolinium enhancement. Axial T1 and T2 imaging. Sagitt al T2 imaging. Coronal STIR imaging. Post gadolinium sagittal imaging with fat saturation technique. FINDINGS: Comparison outside examination MR sacrum September 2020 and Bone scan January 08, 2021 Previous described 6 mm focus of T2 hyperintensity in the left sacral ala adjacent to the sacroiliac joint is no longer seen today. This was likely incidental. No abnormal enhancing lesions in the sacru m. No marrow replacing lesions. Sacral ala are normal in appearance. No insufficiency fractures. No e vidence of sacroiliitis. No evidence of bony metastatic disease in the sacrum. Retroflexed uterus. Lower spinal canal is patent. Normal sacrococcygeal junction. Small right ovarian cyst. MR/MR pelvis wo/w con [id number] IMPRESSION: 1. Previously described left sacral ala lesion is no longer visualized. This w as likely incidental. 2. No suspicious sacral lesions. No evidence of bony metastatic disease in the sacrum. 3. Normal sacroiliac joints. No evidence of sacroiliitis. 4. Retroflexed uterus.
[2021-03-14] MEDS: gadobenate dimeglumine 20 mL vial IV (11:11)
--- NOTE | 2021-03-22 09:21 | ONCRAD EPV_ITS ---
Radiation Oncology Follow-Up Note Patient Name: Nikole Vazquez Date of : 1970 Date of Service: 03/22/2021 Attending Physician: Abe Avila M.D. Nikole Vazquez returned to my office this morning. She completed adjuvant radiotherapy in January for the post-operative management of a pathological stage IB (T1cN1a) grade II lobular carcinoma of the upper-outer quadrant of the left breast. Immunohistochemical stains were positive for estrogen receptor (98%) and progesterone receptor (100%), but negative for HER-2/rosa (1+). The tumor demonstrated an Oncotype DX Breast Recurrence Score of 14. Radiation therapy was administered between the dates of January 14, 2021 through February 18, 2021. A dose of 50 Gy was delivered in 25 fractions encompassing 36 elapsed days. On review of systems, she did not report any breast complaints. On physical examination, the temperature was 98.5???F. Her blood pressure was 118/79 mmHg. The pulse was 82 bpm and the respiratory rate was 16 breaths per minute. Examination of the left breast did not reveal any significant erythema. Hyperpigmentation was noted. In summary, Ms. Vazquez returned for a routine post radiotherapy follow-up. She will continue follow-up with her medical oncologist. Signed by: Dr. Abe Avila 03/22/2021 9:20:13 AM
== END 2021-04-02 23:59 | disposition home or self-care (01) ==
LOC: ONCMED 05:31
PROVIDERS: Absent Provider Radiology Radiation Oncology; PCP Family Medicine; Visit Provider Radiology Radiation Oncology
DX: Z51.11 Encounter for antineoplastic chemotherapy (principal); C50.012 Malignant neoplasm of nipple and areola, left female breast; Z17.0 Estrogen receptor positive status [ER+]; N18.9 Chronic kidney disease, unspecified; G43.919 Migraine, unspecified, intractable, without status migrainosus; M85.80 Other specified disorders of bone density and structure, unspecified site; F41.9 Anxiety disorder, unspecified; F32.9 Major depressive disorder, single episode, unspecified; Z78.0 Asymptomatic menopausal state; Z87.442 Personal history of urinary calculi; Z79.899 Other long term (current) drug therapy; Z92.21 Personal history of antineoplastic chemotherapy; Z92.3 Personal history of irradiation; Z79.811 Long term (current) use of aromatase inhibitors
CPT/HCPCS: 72197; 96402; 99024; 99214; A9577; J9202

== ENCOUNTER 2021-04-10 06:26 | Outpatient (RCR) | payer OTHER, SELFPAY ==
[2021-04-10] MEDS: lidocaine 1% INJ 20 mL INJECTION (14:53)
[2021-04-10] MEDS: goserelin acetate 3.6 mg Implant SUBCUT (15:10)
== END 2021-04-11 15:10 | disposition home or self-care (01) ==
LOC: ONCMED 06:26
PROVIDERS: Absent Provider Radiology Radiation Oncology; PCP Family Medicine; Visit Provider Internal Medicine Medical Oncology
DX: Z51.11 Encounter for antineoplastic chemotherapy (principal); C50.112 Malignant neoplasm of central portion of left female breast; Z17.0 Estrogen receptor positive status [ER+]; Z79.899 Other long term (current) drug therapy
CPT/HCPCS: 96402; J9202

== ENCOUNTER 2021-04-11 15:12 | Emergency (ER) | payer OTHER, SELFPAY ==
[2021-04-11 15:28] VITALS: BP 126/77; PULSE 92; RESP 16; TEMP 36.7; O2SAT 99; BMI 29.0
[2021-04-11 16:26] LABS: Basophils % 0.6 %; Eosinophils # 0.3 10^3/uL (0.0-0.8); Eosinophils % 4.8 %; Hematocrit 45.5 % (37.0-47.0); Lymphocytes # 0.6 10^3/uL (0.8-4.8); Lymphocytes % 9.4 %; Mean Corpuscular Hemoglobin 30.1 pg (28.0-34.0); Mean Corpuscular Volume 91.4 fl (81-99); Mean Platelet Volume 11.2 fL (7.4-10.4); Monocytes # 0.4 10^3/uL (0.2-0.9); Monocytes % 5.4 %; Neutrophils # 5.33 10^3/uL (1.8-7.7); Neutrophils % 79.7 %; Nucleated Red Blood Cells % 0 %; Platelet Count 202 10^3/cmm (130-400); Red Blood Count 4.98 10^6/uL (4.1-5.3); Red Cell Distribution Width 12.7 % (12.1-15.1); White Blood Count 6.7 10^3/uL (4.0-10.0)
[2021-04-11 16:47] VITALS: BP 131/100; BP 131/88; BP 136/84; PULSE 100; PULSE 83; PULSE 93; RESP 15
[2021-04-11 17:19] LABS: Add Urine Microscopic? NO; Charge for UA Resulting for Rev
[2021-04-11] MEDS: sodium chloride 0.9% 1,000 ML 999 ML IV (17:21)
[2021-04-11 17:32] LABS: Urine Appearance Hazy (CLEAR); Urine Color Straw (Yellow)
[2021-04-11 17:33] LABS: Bilirubin Urine Neg (Negative); Blood Urine Neg (Negative); Glucose Urine UA Norm (Normal); Ketones Urine Negative (Negative); Leukocyte Esterase Urine Negative (Negative); Nitrate Urine Negative (Negative); Protein Urine Neg (Negative); Sulfosalicylic Acid Urine Negative (Negative); Urobilinogen Urine Norm (Negative); pH Urine 8 (5-7)
--- NOTE | 2021-04-11 17:38 | ECG_ITS ---
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 Measurements Intervals [place] Rate: 75 P: 58 UT: 181 QRS: 58 QRSD: 85 T: 63 QT: 403 QTc: 451 Interpretive Statements SINUS RHYTHM No previous ECG available for comparison Electronically Signed On 04-11-2021 20:03:55 CDT by Hussein Marie M.D. [email or web address]
--- NOTE | 2021-04-11 17:38 | XRR_ITS ---
PROCEDURE INFORMATION: Exam: XR Chest Exam date and time: 04/11/2021 5:38 PM Age: 50 years old Clinical indication: Cough and dyspnea; Prior surgery; Surgery type: Left breast; Patient HX: HX breast cancer/surgery; Additional info: Dyspnea/cough TECHNIQUE: Imaging protocol: XR of the chest. Views: 1 view. COMPARISON: NM bone scan whole body* [id number] 01/08/2021 8:25 AM FINDINGS: Lungs: Subtle ground-glass opacity in the peripheral left mid lung and right lung base. No consolidation. Pleural spaces: Unremarkable. No pleural effusion. No pneumothorax. Heart/Mediastinum: Unremarkable. No cardiomegaly. Bones/joints: Unremarkable. XR/XR chest 1V portable [id number] IMPRESSION: 1. Subtle ground-glass opacity in the left mid lung and right lung base could represent pneumonia.
--- NOTE | 2021-04-11 17:45 | ED_ITS ---
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 She never had any chest pain never had any shortness of breath no abdominal pain. No difficulty speech swallowing. She felt unsteady but never had any vertiginous-like symptoms. MD elicited complaint: dizziness, lightheadedness and near syncope Onset (ago): minute(s) Timing: gradual onset Severity: mild Description: lightheadedness History of similar symptoms: Yes Exacerbating factors: nothing Relieving factors: nothing Associated symptoms: Reports abnormal vaginal bleeding; Denies change in hearing, chest pain, chills, cough, diaphoresis, ear discharge, ear pressure, fevers/chills, headache(s), malaise, nausea, nasal congestion, palpitations, rash, short of breath, syncope, tinnitus, vomiting or weakness Associated neuro symptoms: Deny confusion, difficulty speaking, dysphagia, diplopia, extremity weakness, facial numbness, facial weakness, gait changes, numbness in extremities or visual changes Review of Systems Const: Denies: chills, malaise or diaphoresis ENMT: Denies: ear discharge, change in hearing, tinnitus or nasal congestion Card: Denies: chest pain, palpitations or syncope Resp: Denies: dyspnea, productive cough or non-productive cough GI: Denies: nausea, vomiting or dysphagia : Denies: flank pain, difficulty voiding, dysuria, urinary frequency or urinary urgency Skin/Breast: Denies: rash or pruritus Neuro: Denies: headache(s), numbness in extremities or confusion PFSH ED PFSH: Medical History Hx of migraines Physical Exam Const: COMMON NORMALS: no acute distress GENERAL APPEARANCE: cooperative and comfortable ORIENTATION/CONSCIOUSNESS: Yes oriented to person, Yes oriented to place and Yes oriented to time HENMT: COMMON NORMALS: normocephalic, atraumatic and hearing grossly normal bilaterally HEAD & SCALP: normocephalic and atraumatic Neck/C-Spine: COMMON NORMALS: no JVD Resp: COMMON NORMALS: normal respiratory effort, No retractions, No use of accessory muscles and clear to auscultation bilaterally AUSCULTATION: clear to auscultation bilaterally Cardio: COMMON NORMALS: no JVD, regular rate, regular rhythm and No murmurs present (Cardio) RATE: regular rate RHYTHM: regular rhythm GI: COMMON NORMALS: Soft to palpation and No hepatosplenomegaly present AUSCULTATION: Yes normoactive bowel sounds PALPATION: Yes Soft to palpation, No Tenderness to palpation present (GI), No Guarding due to palpation present (GI) and Yes No hepatosplenomegaly present Extremity: COMMON NORMALS: normal to inspection, capillary refill normal, no clubbing, cyanosis or edema, no calf tenderness and no pedal edema Neuro: SENSORIUM/ORIENTATION: Yes oriented to person, Yes oriented to place and Yes oriented to time Skin: COMMON NORMALS: no rashes or lesions noted GENERAL SKIN EXAM: no rashes or lesions noted Course Vital Signs: Vital signs: Vital Signs Temperature 98.0 F 04/11/21 15:28 Pulse Rate 68 04/11/21 18:38 Respiratory Rate 15 04/11/21 18:38 Blood Pressure 132/78 04/11/21 18:38 Pulse Oximetry 98 04/11/21 18:38 MDM - Dizziness MDM Narrative: Medical decision making narrative: Better with fluids she has no focal neurologic deficits. Discussed possibly getting a head CT she did not want to do that. I do not really think this is a centralized neurologic issue is bilateral in the arm she has no other focal neurologic deficits noted. Almost wonder if she did not hyperventilate a little bit at the time. Most of her symptoms are better now fluids seem to have helped her orthostatics are normal we will go ahead and discharge her for now she has any recurrence return. I do recommend that she follows up with her oncologist within the next week some of this may be side effects of her anastrozole. Lab Data: Labs: Lab Results 04/11/21 04/11/21 04/11/21 Range/Units 16:10 16:10 16:46 WBC 6.7 (4.0-10.0) 10^3/ uL RBC 4.98 (4.1-5.3) 10^6/u L Hgb 15.0 (11.5-15.3) g/dL Hct 45.5 (37.0-47.0) % MCV 91.4 (81-99) fl MCH 30.1 (28.0-34.0) pg MCHC 33.0 (30.0-36.0) g/dL RDW 12.7 (12.1-15.1) % Plt Count 202 (130-400) 10^3/c mm MPV 11.2 H (7.4-10.4) fL Neut % (Auto) 79.7 % Lymph % (Auto) 9.4 % [place] % (Auto) 5.4 % Eos % (Auto) 4.8 % Baso % (Auto) 0.6 % Neut # (Auto) 5.33 (1.8-7.7) 10^3/u L Lymph # (Auto) 0.6 L (0.8-4.8) 10^3/u L [place] # (Auto) 0.4 (0.2-0.9) 10^3/u L Eos # (Auto) 0.3 (0.0-0.8) 10^3/u L Baso # (Auto) 0.0 (0.0-0.1) 10^3/u L Nucleated RBC % (a uto) 0 % Nucleated RBCs # 0.0 /100WBC Sodium Cancelled 135 L Potassium Cancelled 3.8 Chloride Cancelled 101 Carbon Dioxide Cancelled 23 Anion Gap Cancelled 14.8 BUN Cancelled 10 Creatinine Cancelled 0.9 GFR Calculation Cancelled 66.5 L Glucose Cancelled 97 Calculated Osmolal ity Cancelled 279 L Calcium Cancelled 8.9 Total Bilirubin Cancelled 0.3 AST Cancelled 18 ALT Cancelled 16 Alkaline Phosphata se Cancelled 90 Total Protein Cancelled 7.0 Albumin Cancelled 3.9 Globulin Cancelled 3.1 Lipase Cancelled 20 Urine Color (Yellow) Urine Appearance (CLEAR) Urine pH (5-7) Ur Specific Gravit y (1.005-1.030) Urine Protein (Negative) Urine Glucose (UA) (Normal) Urine Ketones (Negative) Urine Blood (Negative) Urine Nitrate (Negative) Urine Bilirubin (Negative) Prot Sulfosalicyli c Acd (Negative) Urine Urobilinogen (Negative) mg/dL Ur Leukocyte Frida ase (Negative) 04/11/21 Range/Units 16:55 WBC (4.0-10.0) 10^3/ uL RBC (4.1-5.3) 10^6/u L Hgb (11.5-15.3) g/dL Hct (37.0-47.0) % MCV (81-99) fl MCH (28.0-34.0) pg MCHC (30.0-36.0) g/dL RDW (12.1-15.1) % Plt Count (130-400) 10^3/c mm MPV (7.4-10.4) fL Neut % (Auto) % Lymph % (Auto) % [place] % (Auto) % Eos % (Auto) % Baso % (Auto) % Neut # (Auto) (1.8-7.7) 10^3/u L Lymph # (Auto) (0.8-4.8) 10^3/u L [place] # (Auto) (0.2-0.9) 10^3/u L Eos # (Auto) (0.0-0.8) 10^3/u L Baso # (Auto) (0.0-0.1) 10^3/u L Nucleated RBC % (a uto) % Nucleated RBCs # /100WBC Sodium Potassium Chloride Carbon Dioxide Anion Gap BUN Creatinine GFR Calculation Glucose Calculated Osmolal ity Calcium Total Bilirubin AST ALT Alkaline Phosphata se Total Protein Albumin Globulin Lipase Urine Color Straw (Yellow) Urine Appearance Hazy A (CLEAR) Urine pH 8 H (5-7) Ur Specific Gravit y 1.010 (1.005-1.030) Urine Protein Neg (Negative) Urine Glucose (UA) Norm (Normal) Urine Ketones Negative (Negative) Urine Blood Neg (Negative) Urine Nitrate Negative (Negative) Urine Bilirubin Neg (Negative) Prot Sulfosalicyli c Acd Negative (Negative) Urine Urobilinogen Norm (Negative) mg/dL Ur Leukocyte Frida ase Negative (Negative) Discharge Plan Discharge Patient Disposition: Home Clinical Impression: Near syncope Condition: Stable Prescriptions: No Action anastrozole 1 mg tablet 1 mg PO DAILY RF: 0 venlafaxine 75 mg capsule,extended release 24hr 75 mg PO DAILY RF: 0 Stool Softener-Laxative 8.6-50 mg tablet 2 tab PO BID PRN (Reason: Constipation) RF: 0 tramadol 50 mg tablet 100 mg PO QID PRN (Reason: Pain) RF: 0 pantoprazole 40 mg tablet,delayed release (DR/EC) 40 mg PO DAILY RF: 0 Vitamin D3 25 mcg (1,000 unit) Capsule 25 mcg PO DAILY RF: 0 Aimovig Autoinjector 140 mg/mL auto-injector 140 mg SUBCUT Q30D RF: 0 Ubrelvy 50 mg tablet 50 mg PO .ONSET OF MIGRAINE RF: 0 Discharge Orders: Discharge ED (Routine); Ordered 04/11/21 Ordered By: Jamie Blackwell Referrals: Tara Pritchard MD [Primary Care Provider] - Patient Instructions: Opioid Safety Coding Level of Care Code ED [employer] Set Up Mechanic for Chg Fwd Exam Comprehensive
[2021-04-11 17:47] LABS: Alanine Aminotransferase 16 U/L (0-33); Albumin Level 3.9 g/dL (3.5-5.2); Alkaline Phosphatase 90 IU/L (35-105); Blood Urea Nitrogen 10 mg/dL (6-20); Calcium 8.9 mg/dL (8.5-10.5); Carbon Dioxide 23 mmol/L (22-29); Chloride 101 mmol/L (98-107); Globulin 3.1 g/dL (1.3-4.6); Glomerular Filtration Rate 66.5 mL/min (90-130); Glucose 97 mg/dL (65-115); Lipase 20 U/L (13-60); Osmolality Calculated 279 mOsm/kg (285-295); Sodium 135 mmol/L (136-145); Total Bilirubin 0.3 mg/dL (0.15-1.2)
[2021-04-11 17:48] LABS: Anion Gap 14.8 (5-19); Aspartate Amino Transferase 18 U/L (0-32); Potassium 3.8 mmol/L (3.5-5.1)
[2021-04-11 18:00] VITALS: BP 132/78; PULSE 68; RESP 15; O2SAT 98
[2021-04-11 18:38] VITALS: BP 132/78; PULSE 68; RESP 15; O2SAT 98
== END 2021-04-11 18:40 | disposition home or self-care (01) ==
PROVIDERS: Emergency Provider Family Medicine; PCP Family Medicine
DX: R55 Syncope and collapse (principal)
CPT/HCPCS: 71045; 80053; 81003; 83690; 85025; 93005; 96360; 99284; J7030

== ENCOUNTER 2021-04-19 05:44 | Outpatient (RCR) | payer OTHER, SELFPAY ==
--- NOTE | 2021-04-19 12:46 | ONC FU_ITS ---
Dr. Stout Patient Follow-Up Note Patient: Nikole Vazquez Unit #: [id number]: 1970 Dicatated By: Masood Stout M.D.Date of Visit:Apr 19, 2021 Onc Med Follow-up/Prog Note Chief Complaint: Breast cancer. History of Present Illness: This is a 50 year-old woman with grade 2 invasive lobular carcinoma of the left breast, stage IA (T1c, pN1a, M0), ER/KS positive and HER-2/rosa negative. She had a normal screening mammogram in August 2020. She had then presented with a palpable lump in the subareolar area of the left breast. Ultrasound directed biopsy of the mass on 11/20/2020 showed grade 2 invasive lobular carcinoma. The breast prognostic profile showed ER positive at 96% and KS positive at 98%. It was negative for overexpression of HER-2/rosa, 1+ by IHC. She then underwent left breast lumpectomy with axillary sentinel lymph node biopsy on 12/11/2020. Pathology showed grade 2 invasive lobular carcinoma measuring 1.4 x 1.2 x 1.0 cm. There was invasive lobular carcinoma present at the medial resection margin and within 1 mm of the deep, anterior, and lateral margins. There was involvement in 1 of 3 sentinel lymph nodes with the metastasis measuring 2.1 mm. She underwent reexcision lumpectomy on 12/11/2020. Pathology on the reexcision showed no evidence of invasive carcinoma. Her Oncotype DX was low risk with recurrence score 15 corresponding to a risk for distant recurrence at 9 years of 14% with adjuvant endocrine therapy. There was no predicted benefit with adjuvant chemotherapy. I had seen her initially on 12/21/2020. In the setting of a low risk Oncotype DX score, adjuvant chemotherapy was not recommended. However, with axillary lymph node involvement, I felt that she should have adjuvant hormonal therapy with aromatase inhibitor. She was premenopausal at diagnosis and she was thus recommended to initially begin ovarian suppression with goserelin. She was referred to Dr. Avila for radiation. She completed treatment to the left breast and left supraclavicular region on 02/18/2021 to a total dose of 5000 cGy administered in 25 fractions. She had initially started endocrine therapy with monthly goserelin injections in January 2021. I had delayed starting her aromatase inhibitor, as she was significantly fatigued following the radiation. Her symptoms had subsequently improved, and she then began anastrozole 1 mg daily on 03/16/2021. Her medical history is significant and that she had been on long-term endocrine therapy for endometriosis. Her other medical illnesses include chronic kidney disease, osteopenia, and chronic migraine. She has a history of nephrolithiasis and she also has a history of anxiety/depression. She is a non-smoker. She is seen for a follow-up visit. Approximately a week ago she been seen in the emergency room after she had a near syncope episode while at work. Her evaluation was unrevealing. She was discharged home in she has had no further symptoms. At the time of the episode, her blood pressure was found to be significantly elevated. She has since then been checking it at home, and it has been normal. She has had similar episodes in the past on a very occasional basis. The most recent happened 4 to 5 years ago. She otherwise complains that she has been feeling a little tired. She has normal activity, though. ECOG score is 0. She says she does not have much appetite, but she does eat. She has not had fever. She occasionally has hot flashes. She also occasionally has sweating, that does seem to be activity related. She has not had any further menstrual periods. She has not had sore mouth or throat. She has no shortness of breath or cough. She had difficulty sleeping last night because of chest pain, but she also had burping, and she thinks it was just indigestion. She has been taking Protonix, though not on a regular basis. She has mild constipation, which is chronic. Is managed adequately with senna taking senna as needed. Bladder function has been okay, though she has noticed different odor to her urine. She has had some occasional discomfort in her upper left breast/chest wall and axilla. She has pain in the tailbone area on a daily basis, and that has been going on for about 2 years. She has noticed occasional hip pain, which is very likely to be related to the anastrozole. Since starting the anastrozole, she has been having headache most days, whereas she had previously been having them on just an occasional basis. She is managing them adequately with medication. She has had no focal neurologic symptoms. Medications: Aimovig 1 (70 mg/mL) Subcutaneous q 30 days, Anastrozole 1 Tablet (of 1 mg) Oral daily, Effexor XR 1 (75 mg) Capsule SR 24 HR Oral daily, Pantoprazole Sodium 1 (40 mg) Tablet, enteric coated Oral daily, Senna S 2 Tablet (of 8.6-50 mg) Oral b.i.d., traMADol HCl 2 Tablet (of 50 mg) Oral q 6 hours, Ubrelvy 1 (50 mg) Tablet Oral PRN, Vitamin D3 1 Tablet (of 1000 mg) Capsule Oral daily Allergies: Adhesive Tape, diphenhydrAMINE HCl, Gabapentin, Hymenoptra Tests, and Sulfa Antibiotics. Vital Signs: Performed on Apr 19, 2021 08:57 Height - 66.00 in Weight - 183.6 lbs (HIGH) BSA - 1.93 sq.m BMI - 29.63 Temperature - 98.9 F (HIGH) Pulse - 99 /min Respiration - 16 /min BP - 121/83 mm(hg) O2 Sat - 99 % Pain - 4 Physical Examination: Constitutional - She looks good generally, Eyes - Sclerae nonicteric. Conjunctivae clear, ENMT - No lesions noted in the oral cavity, Hematologic/Lymphatic - No cervical, clavicular, or axillary adenopathy, Respiratory - Lungs are clear with good air movement bilaterally, Cardiovascular - Heart rhythm is regular. There is no murmur, gallop, or rub noted, Abdomen - Soft. Liver and spleen are not enlarged. There is no abdominal mass or ascites noted and there is no inguinal adenopathy, Extremities - No edema, Neurologic - No focal neurologic deficits noted. Lab/Imaging: Test performed on December 21, 2020 10:44 Sodium 140 mmol/L TSH 3.05 uIU/mL Vitamin D (25-Hydroxy), Total 24 ng/mL Potassium 3.9 mmol/L Chloride 105 mmol/L CO2 28 mmol/L Anion Gap 10.9 BUN 8 mg/dL Creatinine 0.8 mg/dL Cr Clearance (Est) 120.1200 mL/min eGFR 76.2 mL/min Glucose 81 mg/dL Osmolality - Calculated 287 mOsm/kg Calcium 8.6 mg/dL Protein, Total 6.8 g/dL Albumin 4.1 g/dL Globulin 2.7 g/dL Bilirubin, Total 0.5 mg/dL ALT (SGPT) 12 U/L AST (SGOT) 13 U/L Alkaline Phosphatase 70 IU/L WBC 6.6 10 3/uL RBC 4.93 10 6/uL HGB 14.6 g/dL HCT 45.5 % MCV 92.3 fL MCH 29.6 pg MCHC 32.1 g/dL RDW 12.6 % Platelet Count 232 10 3/cmm MPV 11.4 fL Neutrophils 4.09 10 3/uL Lymphocytes 1.8 10 3/uL Monocytes 0.4 10 3/uL Eosinophils 0.2 10 3/uL Basophils 0.1 10 3/uL Neutrophil % 61.9 % Lymphocyte % 26.9 % Monocyte % 6.4 % Eosinophil % 3.5 % Basophils % 0.8 % NRBC % 0 % Problem List: 1. Grade 2 invasive lobular carcinoma involving the subareolar area of the left breast, stage IA (T1c, pN1a, M0), ER/KS positive and HER-2 negative. Her Oncotype DX was low risk with recurrence score 15. 2. She has been on long-term endocrine therapy for endometriosis, now discontinued. She appears to be perimenopausal. 3. Chronic kidney disease. 4. Chronic migraine. 5. Osteopenia. 6. History of nephrolithiasis. 7. Anxiety and depression. Problems Addressed with this Encounter and Plan: 1. Patient with grade 2 invasive lobular carcinoma involving the subareolar area of the left breast, stage IA (T1c, pN1a, M0), ER/KS positive and HER-2 negative. Her Oncotype DX was low risk with recurrence score 15. She has been on long-term endocrine therapy for endometriosis, now discontinued. She appears to be perimenopausal. Her treatment thus far has included ultrasound guided biopsy of the left breast mass on 11/20/2020 followed by left breast lumpectomy and axillary sentinel lymph node biopsy on 12/04/2010 and by reexcision lumpectomy on 12/11/2020. With stage IA disease and with low risk Oncotype DX adjuvant chemotherapy was not recommended. and she was referred to Dr. Avila for radiation. In the setting of axillary lymph node involvement, I felt that she should have adjuvant hormonal therapy with an aromatase inhibitor. She was premenopausal at diagnosis, she began ovarian suppression with goserelin. She completed radiation to the left breast and supraclavicular area on 02/18/2021 to a total dose of 5,000 cGy, administered in 25 fractions. As she had been feeling exhausted following completion of the radiation, I opted to defer starting her aromatase inhibitor. She had subsequently felt better, and she then began anastrozole 1 mg daily on 03/16/2021. During that time, she also continued her monthly goserelin injections. She is seen now after having her recent episode of near syncope. Her evaluation in the emergency room was unrevealing. She has had similar episodes in the past, though on an occasional basis. The cause remains uncertain, but I think it is unlikely that it is in any way related to her endocrine therapy. As such, she will continue anastrozole 1 mg daily along with monthly goserelin injections. She will monitor her blood pressure at home. I will see her again in 3 months. 2. She has been having pain in the coccygeal area for the past year or so. She was found to have have an abnormal lesion in the left sacral ala by MRI. Her recent bone scan and lumbar spine MRI showed no evidence of metastatic disease. MRI did show a very subtle lesion in the left sacrum measuring 6 mm. It was felt to be nonspecific, and on a followup MRI that lesion was not apparent. The cause of the pain remains uncertain. At this point I will look into the possibility of having her seen at pain clinic for a local injection. 3. She has osteopenia, and she may require treatment for bone health. I will check results of her most recent bone density study and it will be updated as indicated. Signed By: Masood Stout M.D. <<Signature on File>>
== END 2021-05-02 23:59 | disposition home or self-care (01) ==
LOC: ONCMED 05:44
PROVIDERS: Absent Provider Radiology Radiation Oncology; PCP Family Medicine; Visit Provider Internal Medicine Medical Oncology
DX: C50.812 Malignant neoplasm of overlapping sites of left female breast (principal); Z17.0 Estrogen receptor positive status [ER+]; N80.9 Endometriosis, unspecified; N18.9 Chronic kidney disease, unspecified; G43.919 Migraine, unspecified, intractable, without status migrainosus; M85.80 Other specified disorders of bone density and structure, unspecified site; Z87.442 Personal history of urinary calculi; F41.9 Anxiety disorder, unspecified; F32.9 Major depressive disorder, single episode, unspecified; Z79.811 Long term (current) use of aromatase inhibitors; Z92.21 Personal history of antineoplastic chemotherapy
CPT/HCPCS: 99214

== ENCOUNTER → 2021-05-02 08:23 | Outpatient (BNVA) | payer OTHER, SELFPAY | PROVIDERS: PCP Family Medicine; Referring Provider Internal Medicine Medical Oncology; Visit Provider Anesthesiology Pain Medicine | DX: M53.3 Sacrococcygeal disorders, not elsewhere classified (principal); Z79.891 Long term (current) use of opiate analgesic | CPT/HCPCS: 99204 ==

== ENCOUNTER → 2021-05-08 13:40 | Outpatient (BNVA) | payer OTHER, SELFPAY | PROVIDERS: PCP Family Medicine; Visit Provider Anesthesiology Pain Medicine | DX: M70.72 Other bursitis of hip, left hip (principal); Z79.891 Long term (current) use of opiate analgesic; Y93.9 Activity, unspecified | CPT/HCPCS: 20610; 77002; J1030; J3490 ==

== ENCOUNTER 2021-05-16 07:00 | Outpatient (CLI) | payer OTHER, SELFPAY ==
--- NOTE | 2021-05-16 07:12 | US_ITS ---
WS: [id number] ULTRASOUND BREAST LEFT TECHNIQUE: Ultrasound left breast focused area of concern. CLINICAL INFORMATION: BREAST CANCER, EDEMA NEAR SURGICAL SCAR S/P RADIATION TREATM COMPARISON: None. FINDINGS: Ultrasound left breast 2:00 position near the surgical scar. Prior postoperative changes lumpectomy. In the area of interest, there is an anechoic well-circumscribed fluid collection compatible with sim ple cyst or postoperative seroma. This measures 1.8 x 1.5 x 1.7 CM. No other suspicious abnormalities . This could be aspirated with ultrasound if clinically indicated. US/US breast LT complete [id number] IMPRESSION: BI-RADS 2 benign
== END 2021-05-16 07:01 | disposition home or self-care (01) ==
LOC: RAD 07:02
PROVIDERS: PCP Family Medicine; Visit Provider Radiology Radiation Oncology
DX: C50.112 Malignant neoplasm of central portion of left female breast (principal); R60.0 Localized edema
CPT/HCPCS: 76641

== ENCOUNTER 2021-05-16 07:15 | Outpatient (RCR) | payer OTHER, SELFPAY ==
--- NOTE | 2021-05-03 08:27 | ONCRAD EPV_ITS ---
Radiation Oncology Follow-Up Note Patient Name: Nikole Vazquez Date of : 1970 Date of Service: 05/03/2021 Attending Physician: Abe Avila M.D. Nikole Vazquez was evaluated in my office this morning. She completed adjuvant radiotherapy in January for the post-operative management of a pathological stage IB (T1cN1a) grade II lobular carcinoma of the upper-outer quadrant of the left breast. Immunohistochemical stains were positive for estrogen receptor (98%) and progesterone receptor (100%), but negative for HER-2/rosa (1+). The tumor demonstrated an Oncotype DX Breast Recurrence Score of 14. Radiation therapy was administered between the dates of January 14, 2021 through February 18, 2021. A dose of 50 Gy was delivered in 25 fractions encompassing 36 elapsed days. On review of systems, she described left breast swelling. On physical examination, the temperature was 98.3???F. Her blood pressure was 115/82 mmHg. The pulse was 83 bpm and the respiratory rate was 18 breaths per minute. Examination of the left breast revealed lateralized edema inferior to the surgical scar without dolor or erythema. In summary, Ms. Vazquez was evaluated for left breast edema. I will order a unilateral ultrasound for evaluation. Signed by: Dr. Abe Avila 05/03/2021 8:26:29 AM
[2021-05-10] MEDS: lidocaine 1% INJ 20 mL INJECTION (08:30)
[2021-05-10] MEDS: goserelin acetate 3.6 mg Implant SUBCUT (08:45)
== END 2021-06-02 23:59 | disposition home or self-care (01) ==
LOC: RAD 07:15
PROVIDERS: PCP Family Medicine; Visit Provider Internal Medicine Medical Oncology
DX: C50.412 Malignant neoplasm of upper-outer quadrant of left female breast (principal); Z17.0 Estrogen receptor positive status [ER+]; R60.0 Localized edema; Z79.818 Long term (current) use of other agents affecting estrogen receptors and estrogen levels; Z92.3 Personal history of irradiation
CPT/HCPCS: 96402; 99024; J9202

== ENCOUNTER → 2021-05-20 08:49 | Outpatient (BNVA) | payer OTHER, SELFPAY | PROVIDERS: PCP Family Medicine; Visit Provider Anesthesiology Pain Medicine | DX: M53.3 Sacrococcygeal disorders, not elsewhere classified (principal); Z85.3 Personal history of malignant neoplasm of breast; Z79.891 Long term (current) use of opiate analgesic | CPT/HCPCS: 99213 ==

== ENCOUNTER 2021-06-07 06:31 | Outpatient (RCR) | payer OTHER, SELFPAY ==
[2021-06-07] MEDS: goserelin acetate 3.6 mg Implant SUBCUT (08:35)
== END 2021-06-11 06:00 | disposition home or self-care (01) ==
LOC: ONCMED 06:31
PROVIDERS: PCP Family Medicine; Visit Provider Internal Medicine Medical Oncology
DX: C50.112 Malignant neoplasm of central portion of left female breast (principal); Z17.0 Estrogen receptor positive status [ER+]; Z79.818 Long term (current) use of other agents affecting estrogen receptors and estrogen levels
CPT/HCPCS: 96372; 96402; J9202

== ENCOUNTER 2021-06-11 12:50 | Outpatient (CLI) | payer OTHER, SELFPAY ==
--- NOTE | 2021-06-11 12:58 | XR_ITS ---
WS: [id number] SCREENING DEXA SCAN [place] CLINICAL INFORMATION: OSTEOPENIA COMPARISON: None. FINDINGS: The L1-L4 bone mineral density measures 1.123 g/cm2. This corresponds to a T score score of -0.5 and Z score of -0.7. Left femoral neck bone mineral density measures 0.848 g/cm2. This corresponds to a T score of -1.3 an d Z score of -1.2. Right femoral neck bone mineral density measures 0.863 g/cm2. This corresponds to a T score -1.2of an d Z score of -1.1. Mean femoral neck bone mineral density measures 0.855 g/cm2. This corresponds to a T score of -1.2 an d Z score of -1.2. XR/XR DEXA axial skeleton* [id number] IMPRESSION: Normal bone mineralization in the lumbar spine. Osteopenia in the femoral necks . Patient's FRAX calculated 10 year probability for major osteoporotic fracture i s 4.1 % and osteoporotic hip fracture is 0.3%.
== END 2021-06-11 12:51 | disposition home or self-care (01) ==
PROVIDERS: PCP Family Medicine; Visit Provider Internal Medicine Medical Oncology
DX: M85.80 Other specified disorders of bone density and structure, unspecified site (principal)
CPT/HCPCS: 77080

== ENCOUNTER 2021-07-05 07:49 | Outpatient (CLI) | payer OTHER, SELFPAY ==
[2021-07-05] MEDS: lidocaine 1% INJ 20 mL INJECTION (08:28)
[2021-07-05] MEDS: goserelin acetate 3.6 mg Implant SUBCUT (08:40)
--- NOTE | 2021-07-05 10:58 | USCV_ITS ---
ChungNikole romo Age: 50 Gender: F : 1970 Exam Date: 07/05/2021 11:06 Ordering Phys: Ana Maria Santos-Sandra [employer] Technologist: Camelia Smallwood Exam Location: [facility] [place] Indication: PULLING IN LT ARM NEAR AXILLA. HISTORY: Pt states pulling in lt axilla PROCEDURES: Venous duplex imaging was performed in only the left upper extremity. The following venous structures were evaluated: internal jugular vein, subclavian vein, axillary vein, and brachial veins. In addition, the basilic vein, cephalic vein, radial vein, and ulnar vein. FINDINGS: No DVT seen in any vessel examined CONCLUSIONS No evidence of thrombus of the left upper extremity veins. Abebe Sarmiento MD (Electronically Signed) Final Date: 05 July 2021 17:22 S
== END 2021-07-05 07:50 | disposition home or self-care (01) ==
LOC: ONCMED 07:50
PROVIDERS: PCP Family Medicine; Visit Provider Internal Medicine Medical Oncology
DX: C50.812 Malignant neoplasm of overlapping sites of left female breast (principal); Z17.0 Estrogen receptor positive status [ER+]; M85.80 Other specified disorders of bone density and structure, unspecified site; R53.83 Other fatigue; M79.622 Pain in left upper arm; Z79.818 Long term (current) use of other agents affecting estrogen receptors and estrogen levels
CPT/HCPCS: 93971; 96372; 96402; J9202

== ENCOUNTER 2021-07-05 10:28 | Outpatient (CLI) | payer OTHER, SELFPAY ==
--- NOTE | 2021-07-05 10:46 | XR_ITS ---
WS: [id number] Chest 2 views, 07/05/2021 Clinical Data: CHEST PRESSURE Comparison: Portable chest, 04/11/2021. Findings: No nodules, masses or effusions are seen. The heart is normal. The pulmonary vascularity is not increased. No pneumonia or pneumothorax is seen. XR/XR chest 2V* [id number] Impression: Negative chest.
--- NOTE | 2021-07-05 10:46 | XR_ITS ---
WS: [id number] Left hand, 3 views, 07/05/2021 Clinical Data: THUMB PAIN Comparison: None. Findings: No fractures or dislocations are seen. The soft tissues are unremarkable. The joint spaces are normal XR/XR hand LT min 3V* [id number] Impression: Negative left hand.
== END 2021-07-05 10:29 | disposition home or self-care (01) ==
PROVIDERS: PCP Family Medicine; Visit Provider Nurse Practitioner Family
DX: R07.89 Other chest pain (principal); M79.645 Pain in left finger(s)
CPT/HCPCS: 71046; 73130

== ENCOUNTER 2021-07-22 13:09 | Outpatient (CLI) | payer OTHER, SELFPAY ==
--- NOTE | 2021-07-23 06:18 | ONC FU_ITS ---
Dr. Stout Patient Follow-Up Note Patient: Nikole Chung Unit #: [id number]: 1970 Dicatated By: Masood Stout M.D.Date of Visit:Jul 22, 2021 Onc Med Follow-up/Prog Note Chief Complaint: Breast cancer. History of Present Illness: This is a 50 year-old woman with grade 2 invasive lobular carcinoma of the left breast, stage IA (T1c, pN1a, M0), ER/VT positive and HER-2/rosa negative. She had a normal screening mammogram in August 2020. She had then presented with a palpable lump in the subareolar area of the left breast. Ultrasound directed biopsy of the mass on 11/20/2020 showed grade 2 invasive lobular carcinoma. The breast prognostic profile showed ER positive at 96% and VT positive at 98%. It was negative for overexpression of HER-2/rosa, 1+ by IHC. She then underwent left breast lumpectomy with axillary sentinel lymph node biopsy on 12/11/2020. Pathology showed grade 2 invasive lobular carcinoma measuring 1.4 x 1.2 x 1.0 cm. There was invasive lobular carcinoma present at the medial resection margin and within 1 mm of the deep, anterior, and lateral margins. There was involvement in 1 of 3 sentinel lymph nodes with the metastasis measuring 2.1 mm. She underwent reexcision lumpectomy on 12/11/2020. Pathology on the reexcision showed no evidence of invasive carcinoma. Her Oncotype DX was low risk with recurrence score 15 corresponding to a risk for distant recurrence at 9 years of 14% with adjuvant endocrine therapy. There was no predicted benefit with adjuvant chemotherapy. I had seen her initially on 12/21/2020. In the setting of a low risk Oncotype DX score, adjuvant chemotherapy was not recommended. However, with axillary lymph node involvement, I felt that she should have adjuvant hormonal therapy with aromatase inhibitor. She was premenopausal at diagnosis and she was thus recommended to initially begin ovarian suppression with goserelin. She was referred to Dr. Avila for radiation. She completed treatment to the left breast and left supraclavicular region on 02/18/2021 to a total dose of 5000 cGy administered in 25 fractions. She had initially started endocrine therapy with monthly goserelin injections in January 2021. I had delayed starting her aromatase inhibitor, as she was significantly fatigued following the radiation. Her symptoms had subsequently improved, and she then began anastrozole 1 mg daily on 03/16/2021. Her medical history is significant and that she had been on long-term endocrine therapy for endometriosis. Her other medical illnesses include chronic kidney disease, osteopenia, and chronic migraine. She has a history of nephrolithiasis and she also has a history of anxiety/depression. She is a non-smoker. INTERIM HISTORY: In April she was seen in the emergency room after she had a near syncope episode while at work. Her evaluation was unrevealing. She reported having similar episodes but on a very infrequent basis. She continued adjuvant hormonal therapy with anastrozole. Her left breast ultrasound on 05/16/2021 showed an acholic well-circumscribed fluid collection compatible with simple cyst or postoperative seroma at the 2 o'clock position near the surgical scar. It measured 1.8 x 1.5 x 1.7 cm. Her DEXA scan on 06/11/2021 showed normal bone mineralization with T score -0.5 in the lumbar spine, -1.3 in the left femoral neck, and -1.2 in the right femoral neck. She is seen for a follow-up visit. Her main complaint is that she has had episodes with elevated blood pressure and tachycardia. She also has been having some headaches, and she has had some further episodes with nausea and near syncope. She says her bones sometimes hurt, especially in her knees and legs, but it is not bad. She continues to have pain in her tailbone area. She had only very temporary improvement with a local injection. She complains that she is tired, but she has normal activity. ECOG score is 0. Her appetite has been down since at least last summer, and she has lost some weight. She does not have fever. She sometimes has hot flashes and sweating. She has not had cough or shortness of breath. She has had occasional episodes of sharp pain in her chest. She has acid reflux, but that has improved somewhat with pantoprazole. Bowel function has been adequate taking senna/docusate as needed. She has no complaints. She sometimes has dizziness, that usually is not bad. She has had numbness in either arm, but just transiently. She has no other focal neurologic symptoms. Medications: Aimovig 1 (70 mg/mL) Subcutaneous q 30 days, Anastrozole 1 Tablet (of 1 mg) Oral daily, Effexor XR 1 (75 mg) Capsule SR 24 HR Oral daily, Pantoprazole Sodium 1 (40 mg) Tablet, enteric coated Oral daily, Senna S 2 Tablet (of 8.6-50 mg) Oral b.i.d., traMADol HCl 2 Tablet (of 50 mg) Oral q 6 hours, Ubrelvy 1 (50 mg) Tablet Oral PRN, Vitamin D3 1 Tablet (of 1000 mg) Capsule Oral daily Allergies: Adhesive Tape, diphenhydrAMINE HCl, Gabapentin, Hymenoptra Tests, and Sulfa Antibiotics. Vital Signs: Performed on Jul 22, 2021 14:31 Height - 66.00 in Weight - 175 lbs (LOW) BSA - 1.89 sq.m BMI - 28.25 Temperature - 98.2 F (LOW) Pulse - 87 /min Respiration - 18 /min BP - 131/86 mm(hg) O2 Sat - 99 % Pain - 2 Fatigue - 3 Physical Examination: Constitutional - She looks good generally, Eyes - Sclerae nonicteric. Conjunctivae clear, ENMT - No lesions noted in the oral cavity, Hematologic/Lymphatic - No cervical, clavicular, or axillary adenopathy, Respiratory - Lungs are clear with good air movement bilaterally, Cardiovascular - Heart rhythm is regular. There is no murmur, gallop, or rub noted, Abdomen - Soft. Liver and spleen are not enlarged. There is no abdominal mass or ascites noted and there is no inguinal adenopathy, Extremities - No edema, Neurologic - No focal neurologic deficits noted. Problem List: 1. Grade 2 invasive lobular carcinoma involving the subareolar area of the left breast, stage IA (T1c, pN1a, M0), ER/VT positive and HER-2 negative. Her Oncotype DX was low risk with recurrence score 15. 2. She has been on long-term endocrine therapy for endometriosis, now discontinued. She appears to be perimenopausal. 3. Chronic kidney disease. 4. Chronic migraine. 5. Osteopenia. 6. History of nephrolithiasis. 7. Anxiety and depression. Problems Addressed with this Encounter and Plan: 1. Patient with grade 2 invasive lobular carcinoma involving the subareolar area of the left breast, stage IA (T1c, pN1a, M0), ER/VT positive and HER-2 negative. Her Oncotype DX was low risk with recurrence score 15. She has been on long-term endocrine therapy for endometriosis, now discontinued. She appears to be perimenopausal. Her treatment thus far has included ultrasound guided biopsy of the left breast mass on 11/20/2020 followed by left breast lumpectomy and axillary sentinel lymph node biopsy on 12/04/2010 and by reexcision lumpectomy on 12/11/2020. With stage IA disease and with low risk Oncotype DX adjuvant chemotherapy was not recommended. and she was referred to Dr. Avila for radiation. In the setting of axillary lymph node involvement, I felt that she should have adjuvant hormonal therapy with an aromatase inhibitor. She was premenopausal at diagnosis, she began ovarian suppression with goserelin. She completed radiation to the left breast and supraclavicular area on 02/18/2021 to a total dose of 5,000 cGy, administered in 25 fractions. As she had been feeling exhausted following completion of the radiation, I opted to defer starting her aromatase inhibitor. She had subsequently felt better, and she then began anastrozole 1 mg daily on 03/16/2021. During that time, she also continued her monthly goserelin injections. During follow-up she has had some fatigue and she has had some mild joint pain. She has had occasional episodes of elevated blood pressure and tachycardia, and she also has had occasional episodes of nausea/near syncope. It is uncertain to what extent any of that may be treatment related. Overall, she appears to be tolerating her adjuvant hormonal therapy with acceptable toxicity. For now she will continue monthly goserelin injections together with anastrozole 1 mg daily. She will be scheduled for a follow-up visit in 6 months. 2. She has been having pain in the coccygeal area for the past year or so. A specific cause has not been determined. She was found to have have an abnormal lesion in the left sacral ala by MRI. Her bone scan and lumbar spine MRI showed no evidence of metastatic disease. MRI did show a very subtle lesion in the left sacrum measuring 6 mm. It was felt to be nonspecific, and on a followup MRI that lesion was not apparent. She had only temporary improvement following a local injection. Signed By: Masood Stout M.D. <<Signature on File>>
== END 2021-07-22 13:10 | disposition home or self-care (01) ==
PROVIDERS: PCP Family Medicine; Visit Provider Internal Medicine Medical Oncology
DX: C50.012 Malignant neoplasm of nipple and areola, left female breast (principal); Z78.0 Asymptomatic menopausal state; N18.9 Chronic kidney disease, unspecified; G43.909 Migraine, unspecified, not intractable, without status migrainosus; M85.80 Other specified disorders of bone density and structure, unspecified site; Z87.442 Personal history of urinary calculi; F41.8 Other specified anxiety disorders; M53.3 Sacrococcygeal disorders, not elsewhere classified
CPT/HCPCS: 99214

== ENCOUNTER 2021-07-31 11:25 | Outpatient (CLI) | payer OTHER, SELFPAY ==
--- NOTE | 2021-07-31 11:39 | MM_ITS ---
WS: [id number] BILATERAL DIGITAL DIAGNOSTIC MAMMOGRAM MAMMOGRAPHY WITH CAD CLINICAL INFORMATION: BREAST CA 4016-21 COMPARISON: Outside examinations including November 26, 2020, November 16, 2020, and August 24, 2020 TECHNIQUE: Bilateral CC, MLO, and ML views. FINDINGS: The breasts are composed of heterogeneous fibroglandular density, which can limit the detection of sm all underlying mass lesions. Incidental punctate calcifications. Postoperative changes lumpectomy lef t breast. Parenchymal scarring at the lumpectomy site. No suspicious focal mass, asymmetry, calcifications, or architectural distortion. No evidence of rosanna gnancy. MM/[place] [id number] IMPRESSION: BI-RADS: 2-Benign FOLLOW UP: 1 Year Follow-up Recommend return to annual diagnostic mammography.
== END 2021-07-31 11:26 | disposition home or self-care (01) ==
PROVIDERS: PCP Family Medicine; Visit Provider Internal Medicine Medical Oncology
DX: C50.112 Malignant neoplasm of central portion of left female breast (principal)
CPT/HCPCS: 77066

== ENCOUNTER 2021-08-05 08:00 | Outpatient (CLI) | payer OTHER, SELFPAY ==
[2021-08-05] MEDS: lidocaine 1% INJ 20 mL INJECTION (08:10)
[2021-08-05] MEDS: goserelin acetate 3.6 mg Implant SUBCUT (08:30)
== END 2021-08-05 08:01 | disposition home or self-care (01) ==
PROVIDERS: PCP Family Medicine; Visit Provider Internal Medicine Medical Oncology
DX: C50.112 Malignant neoplasm of central portion of left female breast (principal); Z17.0 Estrogen receptor positive status [ER+]; Z79.818 Long term (current) use of other agents affecting estrogen receptors and estrogen levels
CPT/HCPCS: 96372; 96402; J9202

== ENCOUNTER 2021-09-03 15:12 | Outpatient (CLI) | payer OTHER, SELFPAY ==
[2021-09-03] MEDS: lidocaine 1% INJ 20 mL INJECTION (15:31)
[2021-09-03] MEDS: goserelin acetate 3.6 mg Implant SUBCUT (15:43)
== END 2021-09-03 15:13 | disposition home or self-care (01) ==
PROVIDERS: PCP Nurse Practitioner Family; Visit Provider Internal Medicine Medical Oncology
DX: Z51.11 Encounter for antineoplastic chemotherapy (principal); C50.812 Malignant neoplasm of overlapping sites of left female breast; Z17.0 Estrogen receptor positive status [ER+]; Z79.818 Long term (current) use of other agents affecting estrogen receptors and estrogen levels
CPT/HCPCS: 96372; 96402; J1030; J9202

== ENCOUNTER 2021-10-03 11:12 | Emergency (ER) | payer OTHER, SELFPAY ==
[2021-10-03 11:45] VITALS: BP 122/84; PULSE 89; RESP 16; TEMP 36.7; O2SAT 100; BMI 27.4
--- NOTE | 2021-10-03 11:53 | ECG_ITS ---
[facility] Test Date: 2021-10-03 Pat Name: Nikole Chung Department: Room: Gender: Female Driving School Instructor: : 1970 Requested By: Jamie Maya Order Number: [id number] Perez MD: Guillermina Griffiths M.D. Measurements Intervals [place] Rate: 93 P: 77 PA: 183 QRS: 72 QRSD: 95 T: 65 QT: 371 QTc: 462 Interpretive Statements SINUS RHYTHM POSSIBLE LEFT ATRIAL ENLARGEMENT [-0.1mV P-WAVE IN V1/V2] Compared to ECG 04/11/2021 18:13:19 No significant changes Electronically Signed On 10-03-2021 17:44:57 DYE WEIGHER by Guillermina Griffiths M.D. [email or web address] memorial [email or web address] medical [email or web address].[employer]/store/Ov/[id number]
--- NOTE | 2021-10-03 12:43 | W.ED.NAVMDI ---
HPI - Nausea/Vomiting/Diarrhea General: Chief complaint: Nausea/Vomiting/Diarrhea Stated complaint: high blood pressure, vomiting, right side pressure Time Seen by Provider: 10/03/21 11:53 Source: patient Mode of arrival: ambulatory Limitations: no limitations History of Present Illness: 50-year-old female comes in complaining nausea and vomiting with dizziness sudden onset around 7:00 this morning. She is dizziness never she sits or stands and no other focal deficits. No other complaints. MD elicited complaint: nausea and vomiting Onset (ago): hour(s) Description of vomiting: food contents and watery Associated nausea: Yes Associated abdominal pain: Yes Location of pain: Diffuse and Chest Radiation: other (Left arm) Pain consistency: constant Severity: moderate Quality: cramping Exacerbating factors: none Relieving factors: none Associated symtoms: Reports nausea; Denies altered mental status, anxiety, bloating, change in vision, chest pain, cough, diaphoresis, decreased urine output, dizziness, dysuria, epistaxis, fatigue, fecal incontinence, fevers/chills, headache(s), anorexia, malaise, myalgias, numbness, palpitations, rash, short of breath, syncope, tenesmus, tinnitus or weakness Review of Systems Const: Denies: fatigue, malaise or diaphoresis Eyes: Denies: change in vision ENMT: Denies: tinnitus or epistaxis Card: Denies: chest pain, palpitations or syncope Resp: Denies: dyspnea, productive cough or non-productive cough GI: Reports: nausea; Denies: bloating or fecal incontinence : Denies: dysuria Skin/Breast: Denies: rash or pruritus Neuro: Denies: headache(s) or dizziness Psych: Denies: anxiety PFSH ED PFSH: Medical History Borderline osteopenia Breast cancer Endometriosis Hx of migraines Kidney disease Surgical History History of appendectomy Family History Mother Cancer Father Cancer Grandmother Diabetes Grandfather Dementia Social History Smoking and tobacco status: never smoked Physical Exam Const: COMMON NORMALS: no acute distress EXAM LIMITATIONS: no altered mental status GENERAL APPEARANCE: cooperative and comfortable ORIENTATION/CONSCIOUSNESS: Yes awake, Yes oriented to person, Yes oriented to place and Yes oriented to time HENMT: COMMON NORMALS: normocephalic, atraumatic and hearing grossly normal bilaterally HEAD & SCALP: normocephalic and atraumatic Neck/C-Spine: COMMON NORMALS: no JVD Resp: COMMON NORMALS: normal respiratory effort, No retractions, No use of accessory muscles and clear to auscultation bilaterally AUSCULTATION: clear to auscultation bilaterally Cardio: COMMON NORMALS: no JVD, regular rate, regular rhythm and No murmurs present (Cardio) RATE: regular rate RHYTHM: regular rhythm GI: COMMON NORMALS: Soft to palpation and No hepatosplenomegaly present AUSCULTATION: Yes normoactive bowel sounds PALPATION: Yes Soft to palpation, No Tenderness to palpation present (GI), No Guarding due to palpation present (GI) and Yes No hepatosplenomegaly present Extremity: COMMON NORMALS: normal to inspection, capillary refill normal, no clubbing, cyanosis or edema, no calf tenderness and no pedal edema Neuro: SENSORIUM/ORIENTATION: Yes oriented to person, Yes oriented to place and Yes oriented to time Skin: COMMON NORMALS: no rashes or lesions noted GENERAL SKIN EXAM: no rashes or lesions noted Course Vital Signs: Vital signs: Vital Signs Temperature 98.1 F 10/03/21 11:45 Pulse Rate 74 10/03/21 15:23 Respiratory Rate 19 H 10/03/21 15:23 Blood Pressure 132/93 10/03/21 15:23 Pulse Oximetry 100 10/03/21 11:45 MDM - Nausea/Vomiting/Diarrhea Medical Decision Making Her symptoms have resolved. She does that the dizziness lightheadedness when she is getting up along with some nausea that is all resolved we ambulated her without any further symptoms. Valerie go ahead and discharge her home we will set her up for a 48-hour Holter monitor as well as a Lexiscan sestamibi stress test. She feels her blood pressure is much higher than usual at this point while it is slightly elevated and per her report off her baseline I would not recommend starting any medications in the ER setting. Recheck with your primary care doctor later this week to reevaluate return if has any other symptoms. Medical Records I reviewed the patient's medical records. Lab Data I reviewed the patient's lab results. : 10/03/21 12:45 10/03/21 12:45 Laboratory Results WBC 7.1 10^3/uL (4.0-10.0) 10/03/21 12:45 RBC 5.09 10^6/uL (4.1-5.3) 10/03/21 12:45 Hgb 14.8 g/dL (11.5-15.3) 10/03/21 12:45 Hct 44.9 % (37.0-47.0) 10/03/21 12:45 MCV 88.2 fl (81-99) 10/03/21 12:45 MCH 29.1 pg (28.0-34.0) 10/03/21 12:45 MCHC 33.0 g/dL (30.0-36.0) 10/03/21 12:45 RDW 12.4 % (12.1-15.1) 10/03/21 12:45 Plt Count 226 10^3/cmm (130-400) 10/03/21 12:45 MPV 11.0 fL (7.4-10.4) H 10/03/21 12:45 Neut % (Auto) 79.3 % 10/03/21 12:45 Lymph % (Auto) 11.0 % 10/03/21 12:45 [place] % (Auto) 6.1 % 10/03/21 12:45 Eos % (Auto) 3.2 % 10/03/21 12:45 Baso % (Auto) 0.3 % 10/03/21 12:45 Neut # (Auto) 5.61 10^3/uL (1.8-7.7) 10/03/21 12:45 Lymph # (Auto) 0.8 10^3/uL (0.8-4.8) 10/03/21 12:45 [place] # (Auto) 0.4 10^3/uL (0.2-0.9) 10/03/21 12:45 Eos # (Auto) 0.2 10^3/uL (0.0-0.8) 10/03/21 12:45 Baso # (Auto) 0.0 10^3/uL (0.0-0.1) 10/03/21 12:45 Nucleated RBC % (auto) 0 % 10/03/21 12:45 Nucleated RBCs # 0.0 /100WBC 10/03/21 12:45 Sodium 136 mmol/L (136-145) 10/03/21 12:45 Potassium 3.3 mmol/L (3.5-5.1) L 10/03/21 12:45 Chloride 99 mmol/L (98-107) 10/03/21 12:45 Carbon Dioxide 24 mmol/L (22-29) 10/03/21 12:45 Anion Gap 16.3 (5-19) 10/03/21 12:45 BUN 11 mg/dL (6-20) 10/03/21 12:45 Creatinine 0.9 mg/dL (0.5-0.9) 10/03/21 12:45 GFR Calculation 66.5 mL/min (90-130) L 10/03/21 12:45 Glucose 88 mg/dL (65-115) 10/03/21 12:45 Calculated Osmolality 281 mOsm/kg (285-295) L 10/03/21 12:45 Calcium 9.4 mg/dL (8.5-10.5) 10/03/21 12:45 Total Bilirubin 0.7 mg/dL (0.15-1.2) 10/03/21 12:45 AST 20 U/L (0-32) 10/03/21 12:45 ALT 18 U/L (0-33) 10/03/21 12:45 Alkaline Phosphatase 116 IU/L (35-105) H 10/03/21 12:45 Troponin T Baseline 6 ng/L (0-10) 10/03/21 12:45 Troponin T 120 Minute 6.00 ng/L (0-10) 10/03/21 14:45 Delta Troponin T 0 ABS# (0-10) 10/03/21 14:45 Total Protein 7.6 g/dL (6.6-8.7) 10/03/21 12:45 Albumin 5.0 g/dL (3.5-5.2) 10/03/21 12:45 Globulin 2.6 g/dL (1.3-4.6) 10/03/21 12:45 Discharge Plan Discharge Patient Disposition: Home Clinical Impression: Atypical chest pain, Heart palpitations, Dizziness Condition: Stable Prescriptions: New aspirin 81 mg tablet,delayed release (DR/EC) 81 mg PO DAILY Qty: 30 0RF No Action Zoladex 3.6 mg implant 3.6 mg SUBCUT Q28D 0RF anastrozole 1 mg tablet 1 mg PO DAILY 0RF venlafaxine 75 mg capsule,extended release 24hr 75 mg PO DAILY 0RF sennosides-docusate sodium [Stool Softener-Laxative] 8.6-50 mg tablet 2 tab PO BID PRN (Reason: Constipation) 0RF tramadol 50 mg tablet 100 mg PO QID PRN (Reason: Pain) 0RF pantoprazole 40 mg tablet,delayed release (DR/EC) 40 mg PO DAILY 0RF cholecalciferol (vitamin D3) [Vitamin D3] 25 mcg (1,000 unit) Capsule 25 mcg PO DAILY 0RF Aimovig Autoinjector 140 mg/mL auto-injector 140 mg SUBCUT Q30D 0RF Ubrelvy 50 mg tablet 50 - 100 mg PO .ONSET OF MIGRAINE 0RF Discharge Orders: Discharge ED (Routine); Ordered 10/03/21 Ordered By: Jamie Blackwell Referrals: Ana Maria Santos FNP [Primary Care Provider] - Discharge Diet: Usual diet Discharge Activity: Limit activity as instructed Patient Instructions: Opioid Safety Activity Restrictions/Additional Instructions: No exertional activity. client business manager will set you up for a Holter monitor and a stress test. Coding Level of Care Code ED Supervisor [employer] for [employer] Fwd Exam Comprehensive
[2021-10-03 13:00] LABS: Basophils % 0.3 %; Eosinophils # 0.2 10^3/uL (0.0-0.8); Eosinophils % 3.2 %; Hematocrit 44.9 % (37.0-47.0); Hemoglobin 14.8 g/dL (11.5-15.3); Lymphocytes # 0.8 10^3/uL (0.8-4.8); Mean Corpuscular Hemoglobin 29.1 pg (28.0-34.0); Mean Corpuscular Volume 88.2 fl (81-99); Monocytes # 0.4 10^3/uL (0.2-0.9); Monocytes % 6.1 %; Neutrophils # 5.61 10^3/uL (1.8-7.7); Neutrophils % 79.3 %; Nucleated Red Blood Cells % 0 %; Platelet Count 226 10^3/cmm (130-400); Red Blood Count 5.09 10^6/uL (4.1-5.3); Red Cell Distribution Width 12.4 % (12.1-15.1); White Blood Count 7.1 10^3/uL (4.0-10.0)
[2021-10-03 13:24] LABS: Alanine Aminotransferase 18 U/L (0-33); Alkaline Phosphatase 116 IU/L (35-105); Anion Gap 16.3 (5-19); Aspartate Amino Transferase 20 U/L (0-32); Blood Urea Nitrogen 11 mg/dL (6-20); Calcium 9.4 mg/dL (8.5-10.5); Carbon Dioxide 24 mmol/L (22-29); Chloride 99 mmol/L (98-107); Globulin 2.6 g/dL (1.3-4.6); Glomerular Filtration Rate 66.5 mL/min (90-130); Glucose 88 mg/dL (65-115); Osmolality Calculated 281 mOsm/kg (285-295); Potassium 3.3 mmol/L (3.5-5.1); Sodium 136 mmol/L (136-145); Total Bilirubin 0.7 mg/dL (0.15-1.2); Total Protein 7.6 g/dL (6.6-8.7)
[2021-10-03 14:59] LABS: Troponin(5th) Baseline 6 ng/L (0-10)
[2021-10-03] MEDS: sodium chloride 0.9% 1,000 ML 999 ML IV (15:08)
--- NOTE | 2021-10-03 15:21 | PC.NURSE ---
Continuous cardiac, BP, and SpO2 monitoring initiated upon arrival into room.
[2021-10-03 15:23] VITALS: BP 132/93; PULSE 74; RESP 19
[2021-10-03 15:30] LABS: Troponin 5 2HR Delta 0 ABS# (0-10)
--- NOTE | 2021-10-03 16:32 | ECG_ITS ---
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 Measurements Intervals [place] Rate: 70 P: 72 [place]: 184 QRS: 73 QRSD: 97 T: 68 QT: 412 QTc: 445 Interpretive Statements SINUS RHYTHM WITH MARKED SINUS ARRHYTHMIA POSSIBLE LEFT ATRIAL ENLARGEMENT [-0.1mV P-WAVE IN V1/V2] Compared to ECG 10/03/2021 11:42:36 No significant changes Electronically Signed On 10-03-2021 17:51:44 PERFORATOR TYPIST by Guillermina Griffiths M.D. [id number]
--- NOTE | 2021-10-03 16:46 | PC.NURSE ---
Pt was walked to bathroom approx 30 feet. PT stated she is not as dizzy as when first arrived, but pt stated she does feel wobbly . Pt had normal gait observed.
[2021-10-03 16:52] VITALS: BP 141/86; PULSE 104; RESP 17
--- NOTE | 2021-10-04 09:30 | DCPLANNER ---
Addendum entered by Dilia Ontiveros 12/27/21 19:17: Patient has a stress test scheduled for 12.24.21 - patient did attend appointment Patient had a follow up appointment scheduled with [facility] - patient did attend appointment. Addendum entered by Dilia Ontiveros 12/05/21 20:47: Patient had an appointment for 48 hour halter monitor scheduled with [facility] - patient did attend appointment Patient had a follow up appointment scheduled at [facility] - patient did attend appointment. Patient has a follow up appointment scheduled for an out patient stress test for Saturday, December 25, 2021 at 11:30. Centralized scheduling will call patient with appointment information. Addendum entered by Dilia Ontiveros 10/08/21 07:42: consumer insight manager emailed patients information to both Raquel Brown and Raquel Maya at [facility]. Patients information will be printed and reviewed. Clinic will call patient with appointment information. Original Note: consumer insight manager had message to schedule an outpatient 48 hour halter monitor and an outpatient stress test for patient. consumer insight manager emailed sighed order for the halter monitor to Vee Brown. Clinic will call patient with appointment information. consumer insight manager faxed signed order to centralized scheduling for the stress test. Centralized scheduling will call patient with appointment information.
== END 2021-10-03 16:54 | disposition home or self-care (01) ==
PROVIDERS: Emergency Provider Family Medicine; PCP Nurse Practitioner Family
DX: R07.89 Other chest pain (principal); R00.2 Palpitations; R42 Dizziness and giddiness; Z85.3 Personal history of malignant neoplasm of breast
CPT/HCPCS: 80053; 84484; 85025; 93005; 96360; 99283; J7030

== ENCOUNTER 2021-10-08 12:06 | Outpatient (CLI) | payer OTHER, SELFPAY ==
[2021-10-08] MEDS: lidocaine 1% INJ 20 mL INJECTION (12:30)
[2021-10-08] MEDS: goserelin acetate 3.6 mg Implant SUBCUT (12:43)
== END 2021-10-08 12:07 | disposition home or self-care (01) ==
LOC: ONCMED 12:08
PROVIDERS: PCP Nurse Practitioner Family; Visit Provider Internal Medicine Medical Oncology
DX: C50.112 Malignant neoplasm of central portion of left female breast (principal); Z17.0 Estrogen receptor positive status [ER+]; Z79.818 Long term (current) use of other agents affecting estrogen receptors and estrogen levels
CPT/HCPCS: 96372; 96402; J9202

== ENCOUNTER → 2021-10-30 11:44 | Outpatient (BNVA) | payer OTHER, SELFPAY | PROVIDERS: PCP Nurse Practitioner Family; Visit Provider Specialist | DX: M65.312 Trigger thumb, left thumb (principal) | CPT/HCPCS: 73130 ==

== ENCOUNTER 2021-11-05 11:37 | Outpatient (CLI) | payer OTHER, SELFPAY ==
[2021-11-05] MEDS: lidocaine 1% INJ 20 mL INJECTION (12:24)
[2021-11-05] MEDS: goserelin acetate 3.6 mg Implant SUBCUT (12:36)
== END 2021-11-05 11:38 | disposition home or self-care (01) ==
PROVIDERS: PCP Nurse Practitioner Family; Visit Provider Internal Medicine Medical Oncology
DX: C50.112 Malignant neoplasm of central portion of left female breast (principal); Z17.0 Estrogen receptor positive status [ER+]; N80.9 Endometriosis, unspecified; Z78.0 Asymptomatic menopausal state; Z79.818 Long term (current) use of other agents affecting estrogen receptors and estrogen levels; Z79.899 Other long term (current) drug therapy
CPT/HCPCS: 96372; 96402; J9202

== ENCOUNTER 2021-11-15 05:39 | Day surgery (SDC) | payer OTHER, SELFPAY ==
[2021-11-14 12:59] VITALS: BMI 27.7
[2021-11-15] VITALS (7 sets, daily range): BP systolic 110–129; BP diastolic 73–89; PULSE 76–107; RESP 16–18; TEMP 36.4–36.8; O2SAT 96–100
[2021-11-15] MEDS: sodium chloride 0.9% 1,000 ML 30 ML IV (06:23)
[2021-11-15] MEDS: CELEcoxib 200 mg Capsule 400 MG PO (06:23)
[2021-11-15] MEDS: acetaminophen 1,000 MG/100 ML PIGGYBACK 400 MG IV (06:24)
[2021-11-15 06:44] LABS: Basophils % 0.8 %; Eosinophils # 0.4 10^3/uL (0.0-0.8); Eosinophils % 7.5 %; Hematocrit 46.1 % (37.0-47.0); Hemoglobin 14.8 g/dL (11.5-15.3); Lymphocytes # 0.9 10^3/uL (0.8-4.8); Mean Corpuscular HGB Conc 32.1 g/dL (30.0-36.0); Mean Corpuscular Hemoglobin 29.3 pg (28.0-34.0); Mean Corpuscular Volume 91.3 fl (81-99); Mean Platelet Volume 11.1 fL (7.4-10.4); Monocytes # 0.3 10^3/uL (0.2-0.9); Monocytes % 6.5 %; Neutrophils # 3.18 10^3/uL (1.8-7.7); Neutrophils % 66.8 %; Nucleated Red Blood Cells % 0 %; Platelet Count 220 10^3/cmm (130-400); Red Blood Count 5.05 10^6/uL (4.1-5.3); Red Cell Distribution Width 12.4 % (12.1-15.1); White Blood Count 4.8 10^3/uL (4.0-10.0)
--- NOTE | 2021-11-15 06:48 | ANES.PREANE2 ---
Pre-Anesthetic Assessment Height/Weight: Height 1.68 m Weight 78.018 kg Temp Pulse Resp BP Pulse Ox 97.7 F 90 16 121/89 100 11/15/21 06:11 11/15/21 06:11 11/15/21 06:11 11/15/21 06:11 11/15/21 06:11 Preop Diagnosis: Left trigger thumb Operation Date: 11/15/21 07:00 Proposed Procedures p left trigger thumb release 63544/m65.30(Left) - Ewelina Ochoa MD Familial anesthetic complications: Hard to wakeup after a laparoscopy,ended up being admittedfor excess sleepiness Was Beta Kelton taken within 24 hours: N/A Was Clonidine taken within 24 hours: N/A Last intake: Intake Last Liquid Date 11/14/21 Last Liquid Time 19:00 Last Solid Date 11/14/21 Last Solid Time 18:00 Social No alcohol and No tobacco Exam alert, oriented x 3, clear to auscultation bilaterally and regular rate & rhythm Airway Mallampati: Class II Dentition: full Pulmonary None reported CV/HEM Palpitations Has a stress test ordered, but she confirmed with no that she is ok to have the low risk surgery (Trigger finger) before proceeding stress test None reported hx CKD in past Hepatic None reported GI Gastroesophageal Reflux Disease (well controlled) Metabolic None reported Musc/skel None reported Neuropsych None reported Anesthetic Plan ASA status: 2 Anesthesia: General Other: No cristina block, patienit has l ymphedema Risk of > 500 ml blood loss (7ml/kg in children): No Medications/Allergies Home Medications Medication Instructions Recorded Confirmed Last Taken Type anastrozole 1 mg tablet 1 mg PO DAILY 04/11/21 11/15/21 11/14/21 06:00 History cholecalciferol (vitamin D3) 25 25 mcg PO DAILY 04/11/21 11/15/21 11/14/21 06:00 History mcg (1,000 unit) capsule (Vitamin D3) erenumab-aooe 140 mg/mL 140 mg SUBCUT Q30D 04/11/21 11/15/21 11/07/21 History subcutaneous auto-injector (Aimovig Autoinjector) pantoprazole 40 mg tablet,delayed 40 mg PO DAILY 04/11/21 11/15/21 11/14/21 06:00 History release sennosides 8.6 mg-docusate sodium 2 tab PO BID PRN 04/11/21 11/15/21 11/13/21 History 50 mg tablet (Stool Softener-Laxative) tramadol 50 mg tablet 100 mg PO QID PRN 04/11/21 11/15/21 11/13/21 History ubrogepant 50 mg tablet (Ubrelvy) 50 - 100 mg PO .ONSET OF MIGRAINE 04/11/21 11/14/21 Unknown History venlafaxine 75 mg capsule,extended 75 mg PO DAILY 04/11/21 11/15/21 11/14/21 06:00 History release 24 hr goserelin 3.6 mg subcutaneous 3.6 mg SUBCUT Q28D 05/02/21 11/15/21 11/04/21 History implant (Zoladex) potassium 99 mg tablet 99 mg PO DAILY 11/14/21 11/15/21 11/14/21 06:00 History Allergies Allergy/AdvReac Type Severity Reaction Status Date / Time diphenhydramine Allergy Unknown Verified 11/15/21 06:05 [From Benadryl] Sulfa (Sulfonamide Allergy ALGY-Anaphy Verified 11/15/21 06:05 Antibiotics) laxis Current Medications Generic Name Dose Route Start Last Admin Trade Name Freq PRN Reason Stop Dose Admin Sodium Chloride 1,000 mls @ 30 mls/hr 11/15/21 05:45 11/15/21 06:23 Sodium Chloride 0.9% IV 11/16/21 05:44 30 mls/hr .Q24H SHARON Administration PFSH Anesthesia Medical History (Updated 11/13/21 @ 12:54 by Jacqueline Mcintosh MD) Borderline osteopenia Breast cancer Endometriosis Hx of migraines Kidney disease Kidney stones Surgical History (Updated 11/13/21 @ 12:53 by Jacqueline Mcintosh MD) History of appendectomy History of cryosurgery S/P conization of cervix S/P lumpectomy of breast Family History Mother , Colorectal CA Cancer Father Cancer Skin CA Grandmother Diabetes Myocardial infarct Grandfather Dementia Social History Smoking and tobacco status: never smoked Data Anesthesia : 11/15/21 06:22 11/15/21 06:22 Short CBC 11/15/21 Range/Units 06:22 WBC 4.8 (4.0-10.0) 10^3/uL Hgb 14.8 (11.5-15.3) g/dL Hct 46.1 (37.0-47.0) % MCV 91.3 (81-99) fl Plt Count 220 (130-400) 10^3/cmm Neut % (Auto) 66.8 % Neut # (Auto) 3.18 (1.8-7.7) 10^3/uL Cardiac Studies: Holter Monitor 10/15/21
--- NOTE | 2021-11-15 06:55 | P.ANESUD_ITS ---
Pre-Anesthetic Update Pre-Anesthetic Assessment: Date of Surgery/Procedure: 11/15/21 Preop Rach gnosis: Left trigger thumb Proposed Procedure: Operation Date: 11/15/21 07:00 Proposed Procedures p left trigger thumb release 45874/m65.30(Left) - Ewelina Ochoa MD Last Intake: Intake Last Liquid Date 11/14/21 Last Liquid Time 19:00 Last Solid Date 11/14/21 Last Solid Time 18:00 Labs Last 48hrs: Short CBC 11/15/21 Range/Units 06:22 WBC 4.8 (4.0-10.0) 10^3/ uL Hgb 14.8 (11.5-15.3) g/dL Hct 46.1 (37.0-47.0) % MCV 91.3 (81-99) fl Plt Count 220 (130-400) 10^3/c mm Neut % (Auto) 66.8 % Neut # (Auto) 3.18 (1.8-7.7) 10^3/u L Vitals: Temperature 97.7 F 11/15/21 06:11 Temperature Source Temporal Artery S can 11/15/21 06:11 Pulse Rate 90 11/15/21 06:11 Respiratory Rate 16 11/15/21 06:11 Blood Pressure 121/89 11/15/21 06:11 Blood Pressure [place] n 99 11/15/21 06:11 Pulse Oximetry 100 11/15/21 06:11 Oxygen Delivery Me thod 11/15/21 06:12 Cardiac Studies: Holter Monitor 10/15/21
--- NOTE | 2021-11-15 06:57 | P.HPUD_ITS ---
Surgery/Procedure H&P Update DATE OF PROCEDURE: November 15, 2021 DATE H&P PERFORMED: 10/30/21 H&P UPDATE INFORMATION: I have reviewed H&P completed within last 30 days, I have examined patient prior to procedure, No changes to prior documentation and H&P is in [facility] EMR on date indicated PREOP DIAGNOSIS: Left trigger thumb PLANNED PROCEDURE: Operation Date: 11/15/21 07:00 Proposed Procedures p left trigger thumb release 76140/m65.30(Left) - Ewelina Ochoa MD Related Problem List Diagnoses (1) Trigger thumb of left hand:
[2021-11-15 07:04] LABS: Alanine Aminotransferase 18 U/L (0-33); Albumin Level 4.7 g/dL (3.5-5.2); Alkaline Phosphatase 115 IU/L (35-105); Anion Gap 13.7 (5-19); Aspartate Amino Transferase 19 U/L (0-32); Blood Urea Nitrogen 12 mg/dL (6-20); Calcium 9.8 mg/dL (8.5-10.5); Carbon Dioxide 29 mmol/L (22-29); Chloride 101 mmol/L (98-107); Globulin 3.2 g/dL (1.3-4.6); Glomerular Filtration Rate 66.3 mL/min (90-130); Glucose 80 mg/dL (65-115); Osmolality Calculated 289 mOsm/kg (285-295); Potassium 3.7 mmol/L (3.5-5.1); Sodium 140 mmol/L (136-145); Total Bilirubin 0.5 mg/dL (0.15-1.2); Total Protein 7.9 g/dL (6.6-8.7)
--- NOTE | 2021-11-15 08:08 | SUR.PHASEI ---
patient into pacu awake but very drowsy. patient has dressing to left hand dry and intact. patient on room air with sats at 97%.
--- NOTE | 2021-11-15 08:18 | PM.OP ---
Operative Report Date of procedure: November 15, 2021 Pre-op diagnosis: Left trigger thumb Post-op diagnosis: Left trigger thumb Procedure done: Left trigger thumb release Surgeon: Ewelina Ochoa Cattle Trader: None Anesthesia: General (Per LMA, ASA 2) Estimated blood loss (mL): 0 Not utilized due to history of lymphedema IV fluids (mL): 600 Urine output (mL): 0 (No Godoy) Complications: None Findings: Significant triggering of right thumb. Condition: stable Disposition: PACU (Then return to same-day surgery for discharge to home) Brief History: Patient states that her trigger thumb is causing her pain daily and interfering with her daily activities. Patient has not had any treatment for her trigger thumb and would like to discuss options.? Upon further questioning, she also occasionally has triggering of the small finger, but currently, this is not painful and not often enough for her to wish to seek care. Patient wished to proceed with trigger thumb release. Risks and complications were discussed. Consents were signed. Questions were answered. Procedure: Patient was brought to the operating theater. She was placed on the operating room table. The patient has a history of lymphedema in this upper extremity, and therefore, she was given a general anesthetic per LMA, ASA 2, and a tourniquet was not utilized. The patient was given Ancef 2 g preoperatively. Surgical pause was performed prior to commencement of the surgical procedure. At the time of the surgical pause we identified the site and side of surgery. We also identified the patient's identity and appropriate administration of IV antibiotics. Following the surgical pause, an incision was made along the metacarpal phalangeal crease of the thumb. Dissection continued through the skin to the subcutaneous tissues using a scalpel. Blunt dissection was then utilized to spread soft tissues and allow access to the A1 umberto. A1 umberto was identified. It was then incised longitudinally and sharply using a knife. This was accomplished without difficulty and atraumatically. Once the A1 umberto was released, tendons were brought up out of the wound and evaluated. There were no gross masses on the tendons. Tendons were returned to normal position. We then irrigated the wound and subsequently closed it with 3-0 nylon with an interrupted mattress type suture. Following closure of the wound, the wound was injected with 3 mL of bupivacaine into the subcutaneous tissues as a local anesthetic. Sterile dressing was then placed consisting of OpSite, fluffed fluffs, sterile soft roll, and an Franki wrap. The patient was returned to recovery in satisfactory condition. She will be discharged home to follow-up with me in the office. There were no complications and no specimens. Related Problem List Diagnoses (1) Trigger thumb of left hand:
--- NOTE | 2021-11-15 13:09 | ANE.PACU2 ---
Inpatient post-anesthesia follow up: Airway intact: Yes Vital signs: Temperature 98.2 F Pulse Rate 78 Respiratory Rate 18 Blood Pressure 110/79 Pulse Oximetry 96 Oxygen Delivery Me thod Room Air Oxygen Flow Rate Fraction of Inspir ed Oxygen Hydration adequate: Yes Nausea and vomiting: No Pain level: 2 Mental status: Baseline
== END 2021-11-15 08:58 | disposition home or self-care (01) ==
PROVIDERS: PCP Nurse Practitioner Family; Visit Provider Specialist
PROC: (CPT 26055; principal; 2021-11-15 07:00)
DX: M65.312 Trigger thumb, left thumb (principal); K21.9 Gastro-esophageal reflux disease without esophagitis; Z85.3 Personal history of malignant neoplasm of breast; Z79.82 Long term (current) use of aspirin
CPT/HCPCS: 26055; 80053; 85025; J0461; J0690; J2704; J3010; J3490; J7030

== ENCOUNTER 2021-11-21 10:04 | Outpatient (CLI) | payer OTHER, SELFPAY ==
--- NOTE | 2021-11-21 10:15 | USCV_ITS ---
Nikole Chung Age: 51 Gender: F : 1970 Exam Date: 11/21/2021 10:25 Ordering Phys: Jacqueline Mcintosh MD ([email or web address]) Technologist: Camelia Smallwood [place] [facility] [place]: Shortness of breath, irregular heartbeat BP: 112 / 74 HR: 67 Rhythm: Sinus Technical Quality: Adequate MEASUREMENTS (Male / Female) Normal Values 2D ECHO LV Diastolic Diameter PLAX 3.5 cm 4.2 - 5.9 / 3.9 - 5.3 cm LV Systolic Diameter PLAX 2.5 cm LV Chamber Size 4.0 cm IVS Diastolic Thickness 1.3 cm 0.6 - 1.0 / 0.6 - 0.9 cm IVS Systolic Thickness 1.3 cm LVPW Diastolic Thickness 1.1 cm 0.6 - 1.0 / 0.6 - 0.9 cm LVPW Systolic Thickness 1.4 cm RV Chamber Size 2.2 cm LVOT Diameter 2.0 cm LV Ejection Fraction 2D Teich 56.3 % LA Diameter 2.5 cm LA Width 3.1 cm LA Height 4.4 cm RA Width 2.7 cm RA Height 3.8 cm Aorta at Sinotubular Diameter 2.7 cm M-MODE Aortic Annulus Diameter 3.2 cm LA Ao Ratio MM 0.8 MV E Point Septal Separation 0.6 cm DOPPLER AV Peak Velocity 138.0 cm/s LVOT Peak Velocity 92.0 cm/s AV Area Cont Eq vti 2.3 cm squared AV Area Cont Eq pk 2.2 cm squared MV Area PHT 3.1 cm squared Mitral E to A Ratio 1.1 MV E' Velocity 52.0 cm/s Mitral E to MV E' Ratio 10.7 Mitral E to LV E' Lateral Ratio 10.1 Mitral E to LV E' Septal Ratio 11.3 TR Peak Velocity 114.6 cm/s TR Peak Gradient 5.3 mmHg TR Mean Velocity 80.9 cm/s TR Mean Gradient 2.9 mmHg TR Velocity Time Integral 22.7 cm TV Peak E Velocity 72.0 cm/s Right Atrial Pressure 3.0 mmHg Pulmonary Artery Systolic Pressu 8.3 mmHg PV Peak Velocity 56.0 cm/s RV Acceleration Time 0.2 s RV Ejection Time 0.3 s RV AcT/ET 0.5 FINDINGS Left Ventricle Normal left ventricular size, systolic function and wall thickness, with no regional wall motion abnormalities. Left ventricular ejection fraction is estimated at 60 %. Normal diastolic function. Right Ventricle Normal right ventricular size and systolic function. Right ventricular systolic pressure 8.3 mmHg. Right Atrium Normal right atrial size. Left Atrium Normal left atrial size. Mitral Valve Mildly thickened mitral valve. No mitral valve stenosis. No mitral valve regurgitation. Aortic Valve Structurally normal trileaflet aortic valve. No aortic valve stenosis. No aortic valve regurgitation. Tricuspid Valve Structurally normal tricuspid valve. Trace tricuspid valve regurgitation. Pulmonic Valve Structurally normal pulmonic valve. No pulmonary valve stenosis. No pulmonary valve regurgitation. Pericardium No pericardial effusion. Aorta Normal size aortic root and proximal ascending aorta. Normal- sized inferior vena cava. CONCLUSIONS 1. Normal left ventricular size, systolic function and wall thickness, with no regional wall motion abnormalities. Left ventricular ejection fraction is estimated at 60 %. Normal diastolic function. 2. Normal right ventricular size and systolic function. 3. No significant valvular abnormality. 4. No prior similar studies to compare. Jacqueline Mcintosh MD (Electronically Signed) Final Date: 22 November 2021 14:12 S
== END 2021-11-21 10:05 | disposition home or self-care (01) ==
PROVIDERS: PCP Nurse Practitioner Family; Visit Provider Internal Medicine Cardiovascular Disease
DX: R06.02 Shortness of breath (principal)
CPT/HCPCS: 93306

== ENCOUNTER 2021-12-02 10:19 | Oncology outpatient (recurring) (ONCR) | payer OTHER, SELFPAY ==
[2021-12-02] MEDS: lidocaine 1% INJ 20 mL SUBCUT (12:20)
[2021-12-02] MEDS: goserelin acetate 3.6 mg Implant SUBCUT (12:30)
== END 2021-12-31 23:59 | disposition home or self-care (01) ==
PROVIDERS: PCP Nurse Practitioner Family; Visit Provider Internal Medicine Medical Oncology
DX: C50.112 Malignant neoplasm of central portion of left female breast (principal); Z17.0 Estrogen receptor positive status [ER+]; Z79.818 Long term (current) use of other agents affecting estrogen receptors and estrogen levels
CPT/HCPCS: 96372; 96402; J9202

== ENCOUNTER 2021-12-10 06:00 | Outpatient (RCR) | payer OTHER, SELFPAY | END 2021-12-31 23:59 | disposition home or self-care (01) | LOC: SOT 06:00 | PROVIDERS: PCP Nurse Practitioner Family; Referring Provider Specialist; Visit Provider Specialist | DX: M65.312 Trigger thumb, left thumb (principal) | CPT/HCPCS: 97018; 97110; 97140; 97166 ==

== ENCOUNTER → 2021-12-18 13:05 | Outpatient (BNVA) | payer OTHER, SELFPAY | PROVIDERS: PCP Nurse Practitioner Family; Visit Provider Specialist | DX: S62.630A Displaced fracture of distal phalanx of right index finger, initial encounter for closed fracture (principal); X58.XXXA Exposure to other specified factors, initial encounter | CPT/HCPCS: 73130 ==

== ENCOUNTER 2021-12-24 08:48 | Outpatient (CLI) | payer OTHER, SELFPAY ==
--- NOTE | 2021-12-24 08:57 | NMCV_ITS ---
NM yony perf SPECT r/s* [id number] Nikole Chung Age: 51 Gender: F : 1970 Exam Date: 12/24/2021 10:27 Ordering Phys: Jamie Blackwell DO Technologist: ANGELIQUE Serra Exam Location: [facility] Indications: CHEST PAIN STRESS TEST Please see separate stress [facility] for full findings IMAGE PROTOCOL Rest/Stress 1 Lexiscan Day Radiopharmaceutical Dose (mCi) Administration Site Administered by Rest: Tc-99m 10.8 IV ANGELIQUE Serra Sestamibi Stress:Tc-99m 32.4 IV ANGELIQUE Thompson Sestamibi Rest: 24-Dec-2021 60 Discovery 630 Stress: 24-Dec-2021 30 Discovery 630 0.4mg Lexiscan. Images obtained in supine and prone position. SPECT RESULTS Technical Quality: Excellent Raw Data Analysis: Breast attenuation Image Corrections: No attenuation or motion correction applied Summed Stress Score: 0 Summed Rest Score: 0 Summed Difference Score: 0 PERFUSION FINDINGS Small size perfusion abnormality of mild severity of mid anterior wall on supine stress images with improved tracer uptake on prone stress images. This is suggestive of attenuation artifact. FUNCTIONAL RESULTS (calculated via Gated SPECT) Stress Image LV EF (%): 74 Stress EDV (mL):58 TID: 0.89 Stress ESV (mL):15 FUNCTIONAL FINDINGS: The left ventricle is normal in size. Transient Ischemia Dilatation of 0.89. The left ventricular ejection fraction is normal with a value of 74%. There is normal left ventricular wall thickening. IMPRESSIONS 1. Myocardial perfusion imaging is normal. 2. Overall left ventricular systolic function is normal without regional wall motion abnormalities, LVEF=74%. 3. No EKG changes with Lexiscan infusion. Refer to separate report for details. 4. Scan indicates low risk for cardiac events. Jacqueline Mcintosh MD (Electronically Signed) Final Date: 25 Dec 2021 11:59 S
--- NOTE | 2021-12-24 08:57 | ECG_ITS ---
[facility] Test Date: 2021-12-24 Pat Name: Nikole Chung Department: Room: Gender: Female Speech/Language Therapist: : 1970 Requested By: Jamie Maya Order Number: [id number] Perez MD: Jacqueline Mcintosh M.D. Interpretive Statements NAME OF STUDY: LEXISCAN SESTAMIBI STRESS TEST INDICATION: Chest Pain PROCEDURE: At the baseline, the blood pressure was 123/91 mmHg with a heart rate of 91 bpm. The electrocardiogram showed sinus rhythm, normal axis poor baseline. Nonspecific ST-T wave changes. The Lexiscan was infused over a period of 20 seconds. A total of 0.4 milligrams of Lexiscan was infused. The stress phase was continued for a total of 5 minutes. Heart rate at the end of the stress phase was 102 bpm with a blood pressure of 111/81 mmHg. The EKG at the peak infusion revealed sinus tachycardia at 102 bpm with no significant ST-T wave changes. The study was terminated due to protocol completion. Sestamibi was injected 20 seconds after the Lexiscan infusion. Blood pressure at the end of the recovery phase was 112/80 mmHg with a heart rate of 92 beats per minute. CONCLUSION: 1. No significant EKG changes with the LexiScan infusion. 2. No LexiScan induced chest pain or cardiac arrhythmia. 3. Normal blood pressure and heart rate response. 4. Sestamibi/sestamibi perfusion scan pending; see separate report. Electronically Signed On 12-25-2021 12:13:30 CDT by Jacqueline Mcintosh M.D. [email or web address]
[2021-12-24 09:15] VITALS: BMI 27.4
[2021-12-24] MEDS: regadenoson 0.4 Mg/5 ml Syringe IVP (11:01)
[2021-12-24 11:24] VITALS: BP 112/80; PULSE 93
== END 2021-12-24 08:49 | disposition home or self-care (01) ==
PROVIDERS: PCP Nurse Practitioner Family; Visit Provider Family Medicine
DX: R07.9 Chest pain, unspecified (principal)
CPT/HCPCS: 78452; 93017; A9500; J2785

== ENCOUNTER 2022-01-01 08:02 | Oncology outpatient (recurring) (ONCR) | payer OTHER, SELFPAY ==
[2022-01-01 08:14] VITALS: BP 117/77; PULSE 90; RESP 16; TEMP 36.3; O2SAT 100
[2022-01-01] MEDS: lidocaine 1% INJ 20 mL SUBCUT (08:15)
[2022-01-01] MEDS: goserelin acetate 3.6 mg Implant SUBCUT (08:31)
== END 2022-01-30 23:59 | disposition home or self-care (01) ==
PROVIDERS: PCP Nurse Practitioner Family; Visit Provider Internal Medicine Medical Oncology
DX: C50.112 Malignant neoplasm of central portion of left female breast (principal); Z17.0 Estrogen receptor positive status [ER+]; Z79.818 Long term (current) use of other agents affecting estrogen receptors and estrogen levels
CPT/HCPCS: 73130; 96372; 96402; J9202

== ENCOUNTER → 2022-01-20 08:10 | Outpatient (BNVA) | payer OTHER, SELFPAY | PROVIDERS: PCP Nurse Practitioner Family; Visit Provider Specialist | DX: S62.638A Displaced fracture of distal phalanx of other finger, initial encounter for closed fracture (principal); X58.XXXA Exposure to other specified factors, initial encounter | CPT/HCPCS: 73130 ==

== ENCOUNTER 2022-01-31 | Outpatient (RCR) | payer OTHER, SELFPAY | END 2022-03-02 23:59 | disposition home or self-care (01) | LOC: SOT | PROVIDERS: PCP Nurse Practitioner Family; Referring Provider Specialist; Visit Provider Specialist | DX: S62.63 Displaced fracture of distal phalanx of finger (principal) | CPT/HCPCS: 97035; 97110; 97140; 97166 ==

== ENCOUNTER 2022-02-28 08:30 | Oncology outpatient (recurring) (ONCR) | payer OTHER, SELFPAY ==
[2022-01-31] MEDS: lidocaine 1% INJ 20 mL SUBCUT (08:38)
[2022-01-31] MEDS: goserelin acetate 3.6 mg Implant SUBCUT (08:48)
[2022-02-28 08:10] VITALS: BP 121/88; PULSE 82; RESP 18; TEMP 37.4; O2SAT 99
[2022-02-28] MEDS: lidocaine 1% INJ 20 mL SUBCUT (08:28)
[2022-02-28] MEDS: goserelin acetate 3.6 mg Implant SUBCUT (08:39)
== END 2022-03-02 23:59 | disposition home or self-care (01) ==
PROVIDERS: PCP Nurse Practitioner Family; Visit Provider Internal Medicine Medical Oncology
DX: Z51.11 Encounter for antineoplastic chemotherapy (principal); C50.112 Malignant neoplasm of central portion of left female breast; Z17.0 Estrogen receptor positive status [ER+]; Z79.818 Long term (current) use of other agents affecting estrogen receptors and estrogen levels
CPT/HCPCS: 96372; 96402; J9202

== ENCOUNTER 2022-03-31 15:30 | Oncology outpatient (recurring) (ONCR) | payer OTHER, SELFPAY ==
[2022-03-31 14:58] VITALS: BP 123/87; PULSE 91; RESP 16; TEMP 36.8; O2SAT 98
[2022-03-31] MEDS: lidocaine 1% INJ 20 mL SUBCUT (15:00)
[2022-03-31] MEDS: goserelin acetate 3.6 mg Implant SUBCUT (15:15)
== END 2022-04-02 23:59 | disposition home or self-care (01) ==
PROVIDERS: PCP Nurse Practitioner Family; Visit Provider Internal Medicine Medical Oncology
DX: Z51.11 Encounter for antineoplastic chemotherapy (principal); C50.112 Malignant neoplasm of central portion of left female breast
CPT/HCPCS: 96372; 96402; J9202

== ENCOUNTER 2022-04-29 12:52 | Oncology outpatient (recurring) (ONCR) | payer OTHER, SELFPAY ==
[2022-04-29 13:10] VITALS: BP 122/82; PULSE 66; RESP 18; TEMP 36.8; O2SAT 98
[2022-04-29] MEDS: lidocaine 1% INJ 20 mL MDV (mL) INJECTION (13:28)
[2022-04-29] MEDS: goserelin acetate 3.6 mg Implant SUBCUT (13:29)
== END 2022-05-02 23:59 | disposition home or self-care (01) ==
LOC: ONCMED 12:54
PROVIDERS: PCP Nurse Practitioner Family; Visit Provider Internal Medicine Medical Oncology
DX: Z51.11 Encounter for antineoplastic chemotherapy (principal); Z79.818 Long term (current) use of other agents affecting estrogen receptors and estrogen levels; C50.112 Malignant neoplasm of central portion of left female breast
CPT/HCPCS: 96372; 96402; J9202

== ENCOUNTER → 2022-06-02 14:26 | Outpatient (BNVA) | payer OTHER, SELFPAY | PROVIDERS: PCP Nurse Practitioner Family; Visit Provider Nurse Practitioner Family | DX: R55 Syncope and collapse (principal); I10 Essential (primary) hypertension | CPT/HCPCS: 83036 ==

== ENCOUNTER 2022-06-13 17:04 | Outpatient (CLI) | payer OTHER, SELFPAY ==
--- NOTE | 2022-06-13 17:15 | USCV_ITS ---
SheldonNikole Age: 51 Gender: F : 1970 Exam Date: 06/13/2022 17:12 Ordering Phys: Ana Maria Santos Technologist: DREAD [place] [facility] [place]: STNCOPE AND COLLAPSE Risk Factors: Previous Vascular Surgery: Right Brachial BP: / Left Brachial BP: / Right Left Velocity (cm/s) Spectral Plaque Velocity (cm/s) Spectral Plaque Syst/Diast Broadening Syst/Diast Broadening 74.60/ 20.20 Prox CCA 83.50 / 22.30 82.30/ 27.20 Mid CCA 74.90 / 30.90 69.10/ 24.90 Distal CCA 74.90 / 30.90 40.80/ 17.70 Prox ICA 58.50 / 24.30 79.50/ 33.50 Mid ICA 102.50/ 49.70 102.50/49.70 Distal ICA 102.80/ 45.50 63.70 ECA 90.10 1.25 ICA/CCA 1.23 Vertebral 42.20/ 14.40 cm/s 45.50/ 14.90 cm/s Subclavian 81.50 102.0 0 FINDINGS Comparison: none available. No significant elevation of systolic or diastolic velocities. Waveforms are normal. No significant amount of calcified plaque or intimal thickening identified. Antegrade vertebral arteries. CONCLUSIONS Normal carotid doppler ultrasound. Dr. Keshia Taveras DO (Electronically Signed) Final Date: 16 June 2022 08:07 S
== END 2022-06-13 17:05 | disposition home or self-care (01) ==
PROVIDERS: PCP Nurse Practitioner Family; Visit Provider Nurse Practitioner Family
DX: R55 Syncope and collapse (principal)
CPT/HCPCS: 93880

== ENCOUNTER 2022-09-29 14:38 | Oncology outpatient (recurring) (ONCR) | payer OTHER, SELFPAY | END 2022-09-30 23:59 | disposition home or self-care (01) | PROVIDERS: PCP Nurse Practitioner Family; Visit Provider Internal Medicine Medical Oncology | DX: C50.112 Malignant neoplasm of central portion of left female breast (principal) ==

== ENCOUNTER 2022-11-10 08:14 | Oncology outpatient (recurring) (ONCR) | payer OTHER, SELFPAY ==
[2022-11-10 08:44] LABS: Basophils # 0.1 10^3/uL (0.0-0.1); Basophils % 1.1 %; Eosinophils # 0.3 10^3/uL (0.0-0.8); Eosinophils % 5.9 %; Lymphocytes # 1.1 10^3/uL (0.8-4.8); Mean Corpuscular HGB Conc 31.8 g/dL (30.0-36.0); Mean Corpuscular Hemoglobin 29.4 pg (28.0-34.0); Mean Corpuscular Volume 92.2 fl (81-99); Mean Platelet Volume 11.1 fL (7.4-10.4); Monocytes # 0.3 10^3/uL (0.2-0.9); Monocytes % 6.5 %; Neutrophils # 2.86 10^3/uL (1.8-7.7); Neutrophils % 62.3 %; Nucleated Red Blood Cells % 0 %; Platelet Count 200 10^3/cmm (130-400); Red Blood Count 4.77 10^6/uL (4.1-5.3); Red Cell Distribution Width 12.3 % (12.1-15.1); White Blood Count 4.6 10^3/uL (4.0-10.0)
[2022-11-10 09:16] LABS: Alanine Aminotransferase 15 U/L (0-33); Albumin Level 4.2 g/dL (3.5-5.2); Alkaline Phosphatase 117 U/L (35-105); Anion Gap 11.6 (5-19); Aspartate Amino Transferase 14 U/L (0-32); Blood Urea Nitrogen 17 mg/dL (6-20); Calcium 9.4 mg/dL (8.5-10.5); Carbon Dioxide 27 mmol/L (22-29); Chloride 101 mmol/L (98-107); Follicle Stimulating Hormone 52.1 mIU/mL; Globulin 2.6 g/dL (1.3-4.6); Glomerular Filtration Rate 75.6 mL/min (90-130); Glucose 72 mg/dL (65-115); Osmolality Calculated 282 mOsm/kg (285-295); Potassium 3.6 mmol/L (3.5-5.1); Sodium 136 mmol/L (136-145); Total Bilirubin 0.2 mg/dL (0.15-1.2); Total Protein 6.8 g/dL (6.6-8.7)
== END 2022-11-30 23:59 | disposition home or self-care (01) ==
PROVIDERS: PCP Nurse Practitioner Family; Visit Provider Internal Medicine Medical Oncology
DX: C50.112 Malignant neoplasm of central portion of left female breast (principal); E28.319 Asymptomatic premature menopause; Z51.11 Encounter for antineoplastic chemotherapy; Z79.818 Long term (current) use of other agents affecting estrogen receptors and estrogen levels
CPT/HCPCS: 36415; 80053; 82670; 83001; 83002; 85025

== ENCOUNTER 2022-11-14 10:30 | Outpatient (CLI) | payer OTHER, SELFPAY ==
[2022-11-14 11:20] LABS: Erythrocyte Sedimentation Rate 12 mm/hr (0-15)
[2022-11-17 13:39] LABS: Cyclic Citrullinated Peptide <16 UNITS
[2022-11-17 17:00] LABS: Anti-Nuclear Antibody Screen NEGATIVE (NEGATIVE)
== END 2022-11-14 10:31 | disposition home or self-care (01) ==
LOC: LAB 10:34
PROVIDERS: PCP Nurse Practitioner Family; Visit Provider Internal Medicine Medical Oncology
DX: M25.50 Pain in unspecified joint (principal)
CPT/HCPCS: 36415; 85651; 86038; 86140; 86200; 86431

== ENCOUNTER 2023-02-10 12:34 | Oncology outpatient (recurring) (ONCR) | payer OTHER, SELFPAY | END 2023-03-02 23:59 | disposition home or self-care (01) | PROVIDERS: PCP Nurse Practitioner Family; Visit Provider Internal Medicine Medical Oncology | DX: Z53.9 Procedure and treatment not carried out, unspecified reason (principal) ==

== ENCOUNTER 2023-04-27 12:49 | Outpatient (CLI) | payer OTHER, SELFPAY ==
[2023-04-27 13:29] LABS: SARS Covid-2 Antigen negative (Negative)
== END 2023-04-27 12:50 | disposition home or self-care (01) ==
LOC: LAB 12:51
PROVIDERS: PCP Nurse Practitioner Family; Visit Provider Internal Medicine
DX: Z11.52 Encounter for screening for COVID-19 (principal)
CPT/HCPCS: 87426

== ENCOUNTER → 2023-05-19 09:30 | Outpatient (BNVA) | payer OTHER, SELFPAY | PROVIDERS: PCP Nurse Practitioner Family; Visit Provider Anesthesiology Pain Medicine | DX: M54.16 Radiculopathy, lumbar region (principal); M54.50 Low back pain, unspecified; G89.29 Other chronic pain | CPT/HCPCS: 72110 ==

== ENCOUNTER → 2023-05-27 11:42 | Outpatient (BNVA) | payer OTHER, SELFPAY | PROVIDERS: PCP Nurse Practitioner Family; Visit Provider Registered Nurse | DX: R10.9 Unspecified abdominal pain (principal); N39.0 Urinary tract infection, site not specified | CPT/HCPCS: 81000; 87086 ==

== ENCOUNTER 2023-06-11 16:09 | Outpatient (CLI) | payer OTHER, SELFPAY ==
--- NOTE | 2023-06-11 16:45 | MR_ITS ---
WS: [id number] MRI LUMBAR SPINE NONCONTRAST TECHNIQUE: Sagittal T1, T2 and STIR imaging. Axial T1 and T2 imaging. CLINICAL INFORMATION: M54.16 - Radiculopathy, lumbar region COMPARISON: None. FINDINGS: Mild lumbar curve. No acute compression. Mild disc space narrowing L5-S1. L1-L2: Normal. L2-L3: Mild facet arthropathy. Spinal canal and foramen are patent. L3-L4: Mild facet arthropathy. Spinal canal is patent. Tiny LEFT proximal foraminal protrusion with m ild LEFT foraminal narrowing. L4-L5: Mild annular bulging. Mild facet arthropathy. Spinal canal and foramen are patent. L5-S1: LEFT eccentric disc bulge with slight encroachment on the exiting L5 nerve root. RIGHT foramen is patent. Mild facet arthropathy. Spinal canal is patent. Visualized pelvic bony structures: Normal. Paravertebral soft tissues: Normal. IMPRESSION: 1. Mild lumbar curve. No acute compression. No high-grade central canal stenosis. 2. Small LEFT foraminal protrusion with mild LEFT foraminal narrowing and slight encroachment on the exiting LEFT L3 nerve root. 3. LEFT eccentric disc bulge L5-S1 encroaches on the exiting LEFT L5 nerve root. 4. Mild facet arthropathy L3-L5.
== END 2023-06-11 16:10 | disposition home or self-care (01) ==
PROVIDERS: PCP Nurse Practitioner Family; Visit Provider Anesthesiology Pain Medicine
DX: M54.16 Radiculopathy, lumbar region (principal)
CPT/HCPCS: 72148

== ENCOUNTER 2023-06-12 12:53 | Outpatient (CLI) | payer OTHER, SELFPAY ==
--- NOTE | 2023-06-12 13:00 | XR_ITS ---
WS: [id number] SCREENING DEXA SCAN [employer] CLINICAL INFORMATION: on aromatase inhibitor COMPARISON: 2020 FINDINGS: The L1-L4 bone mineral density measures 1.019 g/cm2. This corresponds to a T score score of -1.3 and Z score of -1.4. Left femoral neck bone mineral density measures 0.801 g/cm2. This corresponds to a T score of -1.6 an d Z score of -1.6. Right femoral neck bone mineral density measures 0.837 g/cm2. This corresponds to a T score -1.4of an d Z score of -1.3. Mean femoral neck bone mineral density measures 0.819 g/cm2. This corresponds to a T score of -1.5 an d Z score of -1.4. IMPRESSION: Osteopenia lumbar spine. Osteopenia femoral necks. Patient's FRAX calculated 10 year probability for major osteoporotic fracture is 5.2% and osteoporotic hip fracture is 0.4%. Bone mineral density lumbar spine decrease -9.3% Bone mineral density femoral necks decreased -4.2%
== END 2023-06-12 12:54 | disposition home or self-care (01) ==
LOC: RAD 12:53
PROVIDERS: PCP Nurse Practitioner Family; Visit Provider Nurse Practitioner Family
DX: C50.112 Malignant neoplasm of central portion of left female breast (principal); M85.88 Other specified disorders of bone density and structure, other site; Z79.811 Long term (current) use of aromatase inhibitors
CPT/HCPCS: 77080

== ENCOUNTER 2023-06-16 07:41 | Oncology outpatient (recurring) (ONCR) | payer OTHER, SELFPAY ==
[2023-06-16 07:52] VITALS: BP 111/63; PULSE 55; RESP 16; TEMP 36.3; O2SAT 97
[2023-06-16 08:02] LABS: Basophils % 0.9 %; Eosinophils # 0.3 10^3/uL (0.0-0.8); Eosinophils % 6.1 %; Hematocrit 42.8 % (36-47); Lymphocytes % 23.2 %; Mean Corpuscular HGB Conc 32.2 g/dL (30-55); Mean Corpuscular Hemoglobin 29.9 pg (27-33); Mean Corpuscular Volume 92.8 fl (85-98); Mean Platelet Volume 11.3 fL (7.4-10.4); Monocytes # 0.3 10^3/uL (0.2-0.9); Monocytes % 6.6 %; Neutrophils # 2.69 10^3/uL (1.8-7.7); Nucleated Red Blood Cells % 0 %; Platelet Count 206 10^3/cmm (157-399); Red Blood Count 4.61 10^6/uL (3.85-5.65); Red Cell Distribution Width 12.7 % (12.1-15.1); White Blood Count 4.27 10^3/uL (3.29-11.43)
[2023-06-16 08:21] LABS: Alanine Aminotransferase 14 U/L (0-33); Albumin Level 4.5 g/dL (3.5-5.2); Alkaline Phosphatase 114 U/L (35-105); Aspartate Amino Transferase 18 U/L (0-32); Blood Urea Nitrogen 15 mg/dL (6-20); Calcium 9.6 mg/dL (8.5-10.5); Carbon Dioxide 25 mmol/L (22-29); Chloride 109 mmol/L (98-107); Globulin 2.5 g/dL (1.3-4.6); Glomerular Filtration Rate 47.4 mL/min (90-130); Glucose 93 mg/dL (65-115); Osmolality Calculated 295 mOsm/kg (285-295); Sodium 142 mmol/L (136-145); Total Bilirubin 0.5 mg/dL (0.15-1.2)
== END 2023-07-02 23:59 | disposition home or self-care (01) ==
PROVIDERS: Nurse Practitioner Family; PCP Nurse Practitioner Family; Visit Provider Internal Medicine Medical Oncology
DX: C50.112 Malignant neoplasm of central portion of left female breast (principal)
CPT/HCPCS: 36415; 80053; 85025

== ENCOUNTER 2023-07-10 08:50 | Outpatient (CLI) | payer MEDICAID, SELFPAY ==
[2023-07-10 09:23] LABS: Anion Gap 13.1 (5-19); Blood Urea Nitrogen 11 mg/dL (6-20); Calcium 9.6 mg/dL (8.5-10.5); Carbon Dioxide 25 mmol/L (22-29); Chloride 106 mmol/L (98-107); Glomerular Filtration Rate 47.4 mL/min (90-130); Glucose 74 mg/dL (65-115); Osmolality Calculated 288 mOsm/kg (285-295); Potassium 4.1 mmol/L (3.5-5.1); Sodium 140 mmol/L (136-145)
== END 2023-07-10 08:51 | disposition home or self-care (01) ==
LOC: LAB 08:52
PROVIDERS: PCP Nurse Practitioner Family; Visit Provider Nurse Practitioner Family
DX: R79.89 Other specified abnormal findings of blood chemistry (principal)
CPT/HCPCS: 36415; 80048

== ENCOUNTER → 2023-09-16 12:07 | Outpatient (BNVA) | payer MEDICAID, SELFPAY | PROVIDERS: PCP Family Medicine; Visit Provider Anesthesiology Pain Medicine | DX: M16.9 Osteoarthritis of hip, unspecified (principal); M25.59 Pain in other specified joint; M53.3 Sacrococcygeal disorders, not elsewhere classified; G89.29 Other chronic pain; M54.16 Radiculopathy, lumbar region; M25.551 Pain in right hip; M25.552 Pain in left hip | CPT/HCPCS: 73521; 73522; 99214 ==

== ENCOUNTER 2023-10-30 13:34 | Oncology outpatient (recurring) (ONCR) | payer MEDICAID, SELFPAY ==
[2023-10-21 12:26] LABS: Basophils % 0.7 %; Eosinophils # 0.1 10^3/uL (0.0-0.8); Eosinophils % 2.8 %; Hematocrit 43.3 % (36-47); Lymphocytes # 1.5 10^3/uL (0.8-4.8); Lymphocytes % 31.7 %; Mean Corpuscular HGB Conc 31.9 g/dL (30-55); Mean Corpuscular Hemoglobin 28.8 pg (27-33); Mean Corpuscular Volume 90.4 fl (85-98); Monocytes # 0.3 10^3/uL (0.2-0.9); Monocytes % 6.8 %; Neutrophils # 2.65 10^3/uL (1.8-7.7); Neutrophils % 57.8 %; Nucleated Red Blood Cells % 0 %; Platelet Count 224 10^3/cmm (157-399); Red Blood Count 4.79 10^6/uL (3.85-5.65); Red Cell Distribution Width 12.9 % (12.1-15.1); White Blood Count 4.58 10^3/uL (3.29-11.43)
[2023-10-21 12:38] LABS: Alanine Aminotransferase 10 U/L (0-33); Albumin Level 4.3 g/dL (3.5-5.2); Alkaline Phosphatase 94 U/L (35-105); Anion Gap 10.2 (5-19); Aspartate Amino Transferase 12 U/L (0-32); Blood Urea Nitrogen 11 mg/dL (6-20); Carbon Dioxide 25 mmol/L (22-29); Chloride 106 mmol/L (98-107); Globulin 2.7 g/dL (1.3-4.6); Glucose 82 mg/dL (65-115); Osmolality Calculated 282 mOsm/kg (285-295); Potassium 4.2 mmol/L (3.5-5.1); Sodium 137 mmol/L (136-145); Total Bilirubin 0.4 mg/dL (0.15-1.2)
--- NOTE | 2023-10-30 15:15 | US_ITS ---
WS: [id number] ULTRASOUND SOFT TISSUES RIGHT axilla HISTORY: nodule right axilla; history of left breast cancer COMPARISON: None available. TECHNIQUE: 2-D and color Doppler imaging is submitted. Ultrasound is directed to the RIGHT axilla by the patient. There are a few normal-appearing lymph nod es. These are very deep and probably would not be palpable. There is no soft tissue mass identified. No solid or cystic changes. IMPRESSION: Normal ultrasound RIGHT axilla.
== END 2023-11-01 23:59 | disposition home or self-care (01) ==
LOC: ONCMED 11-26 16:36
PROVIDERS: Nurse Practitioner Family; PCP Family Medicine; Visit Provider Internal Medicine Medical Oncology
DX: Z53.9 Procedure and treatment not carried out, unspecified reason (principal); R22.30 Localized swelling, mass and lump, unspecified upper limb; Z85.3 Personal history of malignant neoplasm of breast
CPT/HCPCS: 36415; 76882; 80053; 85025

== ENCOUNTER → 2024-02-01 12:12 | Outpatient (BNVA) | payer MEDICAID, SELFPAY | PROVIDERS: PCP Family Medicine; Visit Provider Internal Medicine Rheumatology | DX: Z79.899 Other long term (current) drug therapy (principal); Z11.59 Encounter for screening for other viral diseases; Z11.1 Encounter for screening for respiratory tuberculosis; M19.071 Primary osteoarthritis, right ankle and foot | CPT/HCPCS: 73130; 73630; 80076; 82306; 82565; 83520; 85025; 85651; 86140; 86480; 86704; 86803; 87340 ==